=== PATIENT | female | born 1970 | race Caucasian/White ===

== ENCOUNTER → 2023-12-07 14:38 | Outpatient (REF) | payer OTHER, SELFPAY | LOC: HWRAD 14:38 | PROVIDERS: ATTENDING PHYSICIAN Obstetrics & Gynecology Gynecology; FAMILY PHYSICIAN Nurse Practitioner Family | DX: R10.2 Pelvic and perineal pain (principal) | CPT/HCPCS: 76830; 76856 ==

== ENCOUNTER → 2024-01-05 07:47 | Outpatient (REF) | payer OTHER, SELFPAY | LOC: WDC 07:47 | PROVIDERS: ATTENDING PHYSICIAN Obstetrics & Gynecology Gynecology; FAMILY PHYSICIAN Nurse Practitioner Family | DX: N64.4 Mastodynia (principal) | CPT/HCPCS: 76642 ==

== ENCOUNTER → 2024-03-07 13:07 | Outpatient (REF) | payer OTHER, SELFPAY | LOC: RCS 13:07 | PROVIDERS: ATTENDING PHYSICIAN Internal Medicine Cardiovascular Disease; FAMILY PHYSICIAN Nurse Practitioner Family | DX: R07.89 Other chest pain (principal) | CPT/HCPCS: 93225; 93226 ==

== ENCOUNTER 2024-04-04 16:09 | Emergency (ER) | payer OTHER, SELFPAY ==
[2024-04-04 16:09] VITALS: BMI 31.3
[2024-04-04 16:10] VITALS: BP 165/86
[2024-04-04 17:45] VITALS: BP 132/89
[2024-04-04 18:00] VITALS: BP 135/76
--- NOTE | 2024-04-04 18:12 | ED.GENMED ---
History of Present Illness
General
Chief Complaint: Facial Problem
Source: patient
Exam Limitations: none
Time Seen by Provider: 04/04/24 18:12
Nursing documentation reviewed up to this point in time: agreed with
History of Present Illness
History of Present Illness:
53-year-old female with history of facial tingling, HTN GERD, IBS, hypothyroid remote hx Lyme disease, presents with 2 months of right neck and facial tingling, pain getting worse.
53-year-old with burning and numbness and pain. She has been here for different sensations bilateral face in the past. She saw PCP 2 months ago for these symptoms and was told it may be due to being romy menopausal and told to take black cohash.
Saw a different provider for same one month ago and again told probably perimenopausal and continue to black cohash.
Saw Cardiology TOOL PROFILING MACHINE SET UP OPERATOR one month ago as she found her BP to be 180/120 at home, had neg 24 hour Holter monitor and started on Norvasc 3 weeks ago.
[place] [facility] [place] was fatigued all week and had the numbness, tingling, burning pain right side neck and face to episcopalian, thought it may be a side effect from the Norvasc, notified Cardiology TOOL PROFILING MACHINE SET UP OPERATOR and stopped the
Norvasc 2 days ago. Started on Lisinopril 10 mg which she started last night.
States she's had lab work including B vitamins level, TSH, Mg++ all normal, so no need to repeat
Has another appointment with PCP tomorrow.
Past History
Past History
ED Past Medical History: GERD, Hypothyroidism and Other (palpitations. Lyme disease,)
ED Past Surgical History: Cholecystectomy
Social History
Tobacco: Non-smoker
Alcohol: Occasional
Drug: None
Personal:
Living: with family
Employment: Employed
Family History
Family History: Negative Diabetes, Hypertension or CAD
Review of Systems
Review of Systems
Allergies reviewed?: Yes
All Other Systems: ROS reviewed and negative except as documented in HPI and ROS
Constitutional: Denies fever or chills
EENT: Denies sore throat or mouth swelling
Respiratory: Denies trouble breathing
Cardiac: Denies chest pain
ABD/GI: Denies abdominal pain, nausea or vomiting
: Reports no symptoms
Musculoskeletal: Reports no symptoms
Skin: Reports other (Tingling, burning pain, tight feeling right side neck, cheek, ear and episcopalian areas)
Neurological: Denies dizzy, headache, weakness or numbness
Phy Exam
Physical Exam
Physical Exam:
GENERAL: No acute distress. A&Ox3.
CONSTITUTIONAL: Afebrile.
EYES: PERRL, conjunctivae normal
Neck: Supple, no palpable masses. No swelling, no discoloration
ENMT: moist mucus membranes, Pharynx nl, TMs normal, no pain with swallowing
RESPIRATORY: Regular respirations, nonlabored, lungs clear.
CARDIOVASCULAR: Regular rate and rhythm, no murmurs, no rubs. No carotid bruit
GI: Soft, nontender, normal BS
MUSCULOSKELETAL: Moves with ease. Well perfused. Full ROM of neck, no spinal bony tenderness.
SKIN: Warm, dry, pink
PSYCH: Normal mood and affect. Well kept, interactive and appropriate
NEUROLOGIC: Awake, alert and oriented. No focal neurological deficits. Strength equal throughout. Face is symmetrical
Course
Orders/Labs/Results
Orders:
Orders
04/04/24 18:28
CT Neck Angio W/wo Iv Contrast Urgent
Comment:
Reason For Exam: R neck and facial pain and numbness
04/04/24 18:31
CT Head W/o Iv Contrast Urgent
Comment:
Reason For Exam: R facial & neck numbness, pain
Vital Signs
Initial and Last Documented VS:
Initial Vital Signs
Temp Pulse Resp BP Pulse Ox
98.3 F 82 18 165/86 100
04/04/24 16:10 04/04/24 16:10 04/04/24 16:10 04/04/24 16:10 04/04/24 16:10
Last Documented Vital Signs
Temp Pulse Resp BP Pulse Ox
98.3 F 83 21 141/73 96
04/04/24 16:10 04/04/24 20:45 04/04/24 20:45 04/04/24 20:13 04/04/24 20:45
Production Support Supervisor consulted with Physician
Production Support Supervisor consulted with physician?: Yes
Name of Physician Consulted: Natalya
MDM/Problems Addressed
Differential Diagnosis Includes:
paresthesias, blocked carotid vessel, CVA,
MDM/Problems Addressed:
53-year-old female with history of facial tingling, HTN GERD, IBS, hypothyroid remote hx Lyme disease, presents with 2 months of right neck and facial tingling, pain getting worse.
53-year-old with burning and numbness and pain. She has been here for different sensations bilateral face in the past. She saw PCP 2 months ago for these symptoms and was told it may be due to being romy menopausal and told to take black cohash.
Saw a different provider for same one month ago and again told probably perimenopausal and continue to black cohash.
Saw Cardiology TOOL PROFILING MACHINE SET UP OPERATOR one month ago as she found her BP to be 180/120 at home, had neg 24 hour Holter monitor and started on Norvasc 3 weeks ago.
[place] [facility] [place] and was fatigued all week and had the numbness, tingling, burning pain right side neck and face to episcopalian, thought it may be a side effect from the Norvasc, notified Cardiology TOOL PROFILING MACHINE SET UP OPERATOR and stopped the
Norvasc 2 days ago. Started on Lisinopril 10 mg which she started last night.
States she's had lab work including B vitamins level, TSH, Mg++ all normal, so no need to repeat
Has another appointment with PCP tomorrow.
8:45 PM:
CT head normal
CTA neck with and without IV contrast, normal
Pt will f/u with her PCP tomorrow as scheduled
*Critical Care Note
Total Time (30-74mins, 75-104mins- exclusive of procedures): Not Applicable
ED Attending Note
-
Portions of this chart may have been created with voice recognition software.� Occasional wrong word or��sound alike� substitutions may have occurred due to the inherent limitations of voice recognition software.
Discharge Plan
Departure
Patient Disposition: Home (Routine Discharge)
Date of Disposition: 04/04/24
Time of Disposition: 20:46
Patient with high blood pressure during this ER visit?: No
Condition: Good
Discharge Problem:
Facial paresthesia
Instructions: Paresthesia (DC)
Prescriptions:
No Action
Theragen Tablet
1 tab PO DAILY
valacyclovir 500 mg Tablet
500 mg PO BID
pantoprazole 40 mg Tablet,Delayed Release (Dr/Ec)
40 mg PO DAILY
levothyroxine [Synthroid] 200 mcg Tablet
200 mcg PO HS
fluticasone propionate [Flovent HFA] 220 mcg/actuation Hfa Aerosol Inhaler
2 puff INHALATION R BID
Visbiome 112.5 billion cell Capsule
1 cap PO QPM
ibuprofen 600 MG tablet
600 mg PO Q6HPRN PRN (Reason: MILD PAIN)
dicyclomine 10 mg capsule
10 mg PO QID PRN (Reason: abdominal pain) Qty: 7 0RF
nitrofurantoin monohyd/m-cryst [Macrobid] 100 mg capsule
100 mg PO Q12H 5 Days Qty: 10 0RF
Referrals:
Paula Odom CRNP [Family Provider] - Keep scheduled appt
Activity Restrictions/Additional Instructions:
As we discussed, nothing worrisome in your workup here today. Keep your appointment with your PCP tomorrow.
Interventions
Interventions:
*Risk Screen - Suicide Last Done: 04/04/24 20:29
*General Assessment Last Done: 04/04/24 20:29
*Neglect/Abuse Screening Last Done: 04/04/24 20:29
ED- Fall Risk Assessment Last Done: 04/04/24 20:27
*ED COVID-19 Vaccine History Last Done: 04/04/24 21:06
*Nursing Disposition Last Done: 04/04/24 21:06
ED- Neurological Assessment Last Done: 04/04/24 20:27
ED-Skin Assessment Last Done: 04/04/24 20:27
Discharge Date and Time
Discharge Date/Time: 04/04/24 21:06
Print Language: NORWEGIAN
[2024-04-04 20:13] VITALS: BP 141/73
== END 2024-04-04 21:06 | disposition home or self-care (01) ==
LOC: EMR 16:09
PROVIDERS: EMERGENCY PHYSICIAN Emergency Medicine; FAMILY PHYSICIAN Nurse Practitioner Family
DX: R20.2 Paresthesia of skin (principal); K21.9 Gastro-esophageal reflux disease without esophagitis; E03.9 Hypothyroidism, unspecified; I10 Essential (primary) hypertension; K58.9 Irritable bowel syndrome, unspecified; Z90.49 Acquired absence of other specified parts of digestive tract
CPT/HCPCS: 99284; 70450; 70498; Q9967

== ENCOUNTER → 2024-04-20 13:59 | Outpatient (REF) | payer OTHER, SELFPAY | LOC: PAVMRI 13:59 | PROVIDERS: ATTENDING PHYSICIAN Specialist; FAMILY PHYSICIAN Nurse Practitioner Family | DX: R20.0 Anesthesia of skin (principal) | CPT/HCPCS: 70553; A9575 ==

== ENCOUNTER → 2024-05-08 08:14 | Outpatient (REF) | payer OTHER, SELFPAY | LOC: HWRAD 08:14 | PROVIDERS: ATTENDING PHYSICIAN Physician Assistant; FAMILY PHYSICIAN Nurse Practitioner Family | DX: E04.2 Nontoxic multinodular goiter (principal) | CPT/HCPCS: 76536 ==

== ENCOUNTER 2024-07-06 07:41 | Emergency (ER) | payer OTHER, SELFPAY ==
[2024-07-06 07:42] VITALS: BP 162/109
[2024-07-06 08:00] VITALS: BP 157/92
[2024-07-06 08:18] VITALS: BMI 29.8
--- NOTE | 2024-07-06 08:19 | ED.GENMED ---
History of Present Illness
General
Chief Complaint: Weakness
Time Seen by Provider: 07/06/24 08:05
History of Present Illness
History of Present Illness:
53-year-old female history of GERD, IBS, Fabiola on Synthroid presenting with generalized fatigue since March for worsening since 07/10. Patient states that she has been having right sided facial pain since March. Patient states that she had a
right stellate ganglion nerve block on 06/20 which improved right sided facial pain. Patient states that since then, she been having worsening generalized fatigue. Patient denies fever, chills, nausea, vomiting, diarrhea, urinary symptoms, or
abdominal pain. Patient reports left-sided nonradiating nonexertional nonpleuritic chest pain constant since April. Patient states that sometimes she rubs the area or puts ice on it with no relief. Patient states that her Synthroid was last
changed 2 months ago. Patient states that she was supposed to have an EMG today but came here instead secondary to generalized fatigue.
Past History
Past History
ED Past Medical History: GERD, Hypothyroidism and Other (palpitations. Lyme disease,)
ED Past Surgical History: Cholecystectomy
Social History
Tobacco: Non-smoker
Alcohol: Occasional
Drug: None
Personal:
Living: with family
Employment: Employed
Family History
Family History: Negative Diabetes, Hypertension or CAD
Phy Exam
Physical Exam
Physical Exam:
General: Alert, no acute distress
Head: NCAT
Eyes: clear conjunctiva. PERRLA, EOMI
Neck: supple. no overlying erythema, ecchymosis, swelling, tenderness to palpation, induration or fluctuance to right anterior neck where stellate ganglion nerve block performed.
Cardiac: regular rate and rhythm, no murmur
Lungs: clear to auscultation bilaterally. No wheezes, rales, or rhonchi. Speaking full unlabored sentences. No respiratory distress.
Abdomen: soft, nondistended nontender. No rebound or guarding.
MSK: no lower extremity edema bilaterally. No deformity
Skin: warm, dry
Neuro: Alert and oriented x3. CN II-XII grossly intact with no focal deficits. strength 5/5 bilateral upper and lower extremities. sensation intact. no slurred speech
Scores
Heart Score for Chest Pain Patients
STEMI patient?: No
History: Slightly or Non-Suspicious
ECG: Normal
Age: >45 - <65 years
Risk Factors: 1 or 2 Risk Factors
Troponin: </= Normal Limit
Heart Score for Chest Pain Patients: 2
Heart Score Risk: 2.5% MACE over next 6 weeks
Course
Orders/Labs/Results
Orders:
Orders
07/06/24 07:45
Electrocardiogram (*1) Urgent
Reason for Study: Chest Pain
EKG- Treatment ONCE
07/06/24 08:19
CXR2 [CR Chest - 2 Views ] Urgent
Comment:
Reason For Exam: chest pain sob
07/06/24 08:32
CBC/With Diff [Complete Blood Count/With Diff] Urgent
CMP [Comprehensive Metabolic Panel] Urgent
Lipase Urgent
Troponin I Urgent
UA Reflex to Culture [Urinalysis Reflex To Culture] Urgent
Date Specimen was Collected: 07/06/24
Time Specimen was Collected: 08:22
Urine Microscopic Reflex Cult Urgent
Urine Culture Urgent
RACHANA Source: U
Specimen Description:
Date Specimen was Collected: 07/06/24
Time Specimen was Collected: 08:22
Abnormal Lab Results
07/06/24
08:32
WBC 4.6 L 10^3/uL
(4.8-10.8)
MPV 11.2 H fL
(7.4-10.4)
Absolute Lymphs (auto) 1.0 L 10^3/uL
(1.2-3.4)
Monocytes % 10.0 H %
(1.7-9.3)
Glucose 104 H mg/dl
(70-99)
ALT 37 H U/L
(0-35)
Leukocyte Esterase Rfl 1+ A
(Negative)
Urine Bacteria (Reflex) Few A
(Negative)
07/06/24 08:32
07/06/24 08:32
Vital Signs
Initial and Last Documented VS:
Initial Vital Signs
Temp Pulse Resp BP Pulse Ox
97.6 F 110 18 162/109 99
07/06/24 07:42 07/06/24 07:42 07/06/24 07:42 07/06/24 07:42 07/06/24 07:42
Last Documented Vital Signs
Temp Pulse Resp BP Pulse Ox
97.6 F 83 17 158/94 99
07/06/24 07:42 07/06/24 10:00 07/06/24 10:00 07/06/24 10:00 07/06/24 10:00
MDM/Problems Addressed
Differential Diagnosis Includes:
electrolyte abnormality, aydee, nstemi, musculoskeletal pain, viral infection, menopause
MDM/Problems Addressed:
53yoF presenting with generalized fatigue since March 2024, worsening since 06/20 when she had a right stellate ganglion nerve block for right sided facial pain. Pt also reports constant nonpleuritic nonexertional nonradiating left sided chest pain
since April with sometimes shortness of breath. Otherwise no fever, chills, nausea, vomiting, abdominal pain or urinary symptoms. No focal weakness, slurred speech or visual changes. Nontoxic appearing, normal exam. Will check labs, UA, troponin,
CXR, reevaluate. On chart review, pt had CTA neck and CT head on 04/04/24 that was unremarkable. EKG shows NSR at 86bpm with OH 154 QTc 449 no acute ischemic changes.
Labs reviewed. Electrolytes within normal limits. Creatinine within normal limits.. ALT 37 (chronically elevated). Troponin within normal limits. UA negative for UTI. Given normal EKG, normal troponin, chest pain constant for the past few
months, we will forego repeat troponin. Heart score 2. Stable for discharge with cardiology and PCP follow-up
*Critical Care Note
Total Time (30-74mins, 75-104mins- exclusive of procedures): Not Applicable
ED Attending Note
-
Portions of this chart may have been created with voice recognition software.� Occasional wrong word or��sound alike� substitutions may have occurred due to the inherent limitations of voice recognition software.
Discharge Plan
Departure
Patient Disposition: Home (Routine Discharge)
Date of Disposition: 07/06/24
Time of Disposition: 10:03
Patient with high blood pressure during this ER visit?: Yes
Discharge Problem:
Chest pain
Instructions: Generalized Weakness (DC), Chest Pain CBC Follow Up, BLOOD PRESSURE
Prescriptions:
No Action
Theragen Tablet
1 tab PO DAILY
valacyclovir 500 mg Tablet
500 mg PO BID
pantoprazole 40 mg Tablet,Delayed Release (Dr/Ec)
40 mg PO DAILY
levothyroxine [Synthroid] 200 mcg Tablet
200 mcg PO HS
fluticasone propionate [Flovent HFA] 220 mcg/actuation Hfa Aerosol Inhaler
2 puff INHALATION R BID
Visbiome 112.5 billion cell Capsule
1 cap PO QPM
ibuprofen 600 MG tablet
600 mg PO Q6HPRN PRN (Reason: MILD PAIN)
dicyclomine 10 mg capsule
10 mg PO QID PRN (Reason: abdominal pain) Qty: 7 0RF
nitrofurantoin monohyd/m-cryst [Macrobid] 100 mg capsule
100 mg PO Q12H 5 Days Qty: 10 0RF
Referrals:
Paula Odom CRNP [Family Provider] -
Activity Restrictions/Additional Instructions:
Follow-up with cardiology and primary care doctor in 1 to 2 days
Return to emergency department for fever or new/worsening symptoms
Interventions
Interventions:
*Risk Screen - Suicide Last Done: 07/06/24 07:42
*General Assessment Last Done: 07/06/24 07:42
*Neglect/Abuse Screening Last Done: 07/06/24 07:42
ED- Fall Risk Assessment Last Done: 07/06/24 08:19
*ED COVID-19 Vaccine History Last Done: 07/06/24 07:42
*Nursing Disposition Last Done: 07/06/24 10:23
ED- Cardiac Assessment Last Done: 07/06/24 08:19
ED- Neurological Assessment Last Done: 07/06/24 08:19
ED- Pulmonary Assessment Last Done: 07/06/24 08:19
Discharge Date and Time
Discharge Date/Time: 07/06/24 10:24
Print Language: URUGUAYAN
[2024-07-06 08:43] LABS: % Basophils 1.1 % (0-2); % Eosinophils 5.2 % (0-6); % Immature Granulocytes 0.2 % (0-0.5); % Neutrophils 62.5 % (42.2-75.2); Absolute Basophils 0.1 10^3/uL (0-0.2); Absolute Eosinophils 0.2 10^3/uL (0-0.7); Absolute Monocytes 0.5 10^3/uL (0.1-0.6); Absolute Neutrophils 2.9 10^3/uL (1.4-6.5); Hematocrit 42.2 % (37.0-47.0); Hemoglobin 14.5 g/dL (12.0-16.0); Mean Corp Hgb Conc. 34.4 g/dL (33.0-37.0); Mean Corpuscular Hgb 28.1 pg (27.0-31.0); Mean Corpuscular Volume 81.8 fL (81.0-99.0); Mean Platelet Volume 11.2 fL (7.4-10.4); Nucleated Red Blood Cells % 0 %; Platelet Count 208 10^3/uL (130-400); Red Blood Cell Count 5.16 10^6/uL (4.20-5.40); Red Cell Dist. Width 13.5 % (11.5-14.5); White Blood Cell Count 4.6 10^3/uL (4.8-10.8)
[2024-07-06 08:44] LABS: Urine Albumin Negative (Neg - Trace); Urine Bilirubin Negative (Negative); Urine Character Clear (Clear); Urine Color Yellow; Urine Glucose Negative (Negative); Urine Ketone Negative (Negative); Urine Leukocyte 1+ (Negative); Urine Nitrite Negative (Negative); Urine Occult Blood Negative (Negative); Urine Urobilinogen Negative (Neg - 1+); Urine pH 6.5 (5.0-9.0)
[2024-07-06 08:56] LABS: ALT (SGPT) 37 U/L (0-35); AST (SGOT) 35 U/L (14-36); Albumin 4.9 g/dl (3.5-5.0); Alkaline Phosphatase 102 U/L (38-126); Blood Urea Nitrogen 16 mg/dl (7-17); Calcium 9.9 mg/dl (8.4-10.2); Carbon Dioxide 22 mmol/L (22-30); Chloride 104 mmol/L (98-107); Estimated Creatinine Clearance 68 ml/min; Glucose 104 mg/dl (70-99); Lipase 222 U/L (23-300); Sodium 142 mmol/L (135-145); Total Bilirubin 0.8 mg/dl (0.2-1.3); Total Protein 7.7 g/dl (6.3-8.2); eGFR > 60.00
[2024-07-06 08:58] LABS: Urine Squamous Cell >30 /LPF (Few)
[2024-07-06 09:00] LABS: Urine Bacteria Few (Negative); Urine Red Blood Cell None Seen /HPF (0-2)
[2024-07-06 09:07] LABS: Troponin I < 0.012 ng/ml
[2024-07-06 09:39] VITALS: BP 142/86
[2024-07-06 10:00] VITALS: BP 158/94
== END 2024-07-06 10:24 | disposition home or self-care (01) ==
LOC: EMR 07:41
PROVIDERS: EMERGENCY PHYSICIAN Emergency Medicine; FAMILY PHYSICIAN Nurse Practitioner Family
DX: R07.89 Other chest pain (principal); R03.0 Elevated blood-pressure reading, without diagnosis of hypertension; K21.9 Gastro-esophageal reflux disease without esophagitis; K58.9 Irritable bowel syndrome, unspecified
CPT/HCPCS: 99285; 71046; 80053; 81003; 81015; 83690; 84484; 85025; 87086; 93005

== ENCOUNTER → 2024-07-06 14:53 | Outpatient (REF) | payer OTHER, SELFPAY | LOC: RCS 14:53 | PROVIDERS: ATTENDING PHYSICIAN Internal Medicine Cardiovascular Disease; FAMILY PHYSICIAN Nurse Practitioner Family | DX: R07.89 Other chest pain (principal) | CPT/HCPCS: 93017 ==

== ENCOUNTER → 2024-07-26 08:55 | Outpatient (REF) | payer OTHER, SELFPAY | LOC: HWRAD 08:55 | PROVIDERS: ATTENDING PHYSICIAN Student in an Organized Health Care Education/Training Program; FAMILY PHYSICIAN Nurse Practitioner Family | DX: R74.01 Elevation of levels of liver transaminase levels (principal); R79.89 Other specified abnormal findings of blood chemistry | CPT/HCPCS: 76700 ==

== ENCOUNTER → 2024-07-26 20:25 | Outpatient (REF) | payer OTHER, SELFPAY | LOC: MRI 20:25 | PROVIDERS: ATTENDING PHYSICIAN Physician Assistant Medical; FAMILY PHYSICIAN Nurse Practitioner Family | DX: M54.2 Cervicalgia (principal); M47.812 Spondylosis without myelopathy or radiculopathy, cervical region; M54.12 Radiculopathy, cervical region | CPT/HCPCS: 72141 ==

== ENCOUNTER 2024-08-03 09:17 | Emergency (ER) | payer OTHER, SELFPAY ==
[2024-08-03 09:19] VITALS: BP 154/101
--- NOTE | 2024-08-03 09:35 | ED.GENMED ---
History of Present Illness
General
Chief Complaint: Abdominal Pain
Time Seen by Provider: 08/03/24 09:35
History of Present Illness
History of Present Illness:
TIME OF INITIAL ENCOUNTER: 9:40 AM
HPI: The patient presents with a few months of left upper quadrant pain. About a month ago she had outpatient ultrasound that showed hepatosplenomegaly described as mild. The pain has been worsening. She has poor appetite. She vomited once. She
states that her primary care doctor tested her for mono was negative. She has not had a period in about 10 months. She does not feel that her symptoms are related to GERD
EXAM:
GENERAL: Well appearing but in mild distress
HEENT: Moist oral mucosa
CARDIOVASCULAR: No murmurs, normal heart rate, regular rhythm, No chest wall tenderness
PULMONARY: No respiratory distress, breath sounds are clear and equal
ABDOMEN: Soft with no peritoneal signs, mild bilateral lower quadrant tenderness
NEUROLOGIC: Excellent strength all extremities, no coordination deficits
PSYCHIATRIC: Appropriate mental status, normal insight and judgement
EXTREMITIES: Nontender, no edema, moves all extremities equally
SKIN: No rash, no lesions
NUMBER AND COMPLEXITY OF PROBLEMS ADDRESSED AT THE ENCOUNTER
� Chronic conditions affecting care: GERD, IBS, high blood pressure
� Acute Exacerbation and/or Progression of Chronic Illness: This is an acute problem
� Differential Diagnosis includes: Exacerbation of IBS, exacerbation of GERD, exacerbation of EOE, enteritis, splenomegaly, splenic rupture
AMOUNT AND/OR COMPLEXITY OF DATA TO BE REVIEWED AND ANALYZED
� I performed an independent evaluation of and my interpretation is:
EKG:
CT: CT imaging suggests enteritis in the left upper quadrant
X-rays:
Laboratory Studies: White count 6.9, hemoglobin 14.7, chemistries unremarkable including LFTs and lipase, hCG negative, 2+ leukocyte esterase noted
Other:
� Review of other/old records: I reviewed records including the ultrasound from 07/26/2024 that suggested fatty liver and mild splenomegaly which was new in comparison to CT from 03/17/2024
� Clinical information was obtained by an independent historian: None needed
� Prescriptions/Medications Considered but not given:
� Further testing considered but not performed:
RISK OF COMPLICATIONS AND/OR MORBIDITY OR MORTALITY OF PATIENT MANAGEMENT
� Social determinants of health affecting care: Lives at home
� Discussion with other providers: Notified GI front office to try to expedite close outpatient follow-up
� Escalation of care including admission/observation vs risk of discharge considered: Given patient's ongoing symptoms, CT imaging obtained. Labs unremarkable. CT suggest enteritis in the left upper quadrant which is the
location of the patient's pain.
ANY OTHER UPDATES:
12:45 PM: I reassessed patient. She reports some minimal improvement after Toradol. She appears fairly comfortable. She states did try to call their office earlier in the day.
Past History
Past History
ED Past Medical History: GERD, Hypothyroidism and Other (palpitations. Lyme disease,)
ED Past Surgical History: Cholecystectomy
Social History
Tobacco: Non-smoker
Alcohol: Occasional
Drug: None
Personal:
Living: with family
Employment: Employed
Family History
Family History: Negative Diabetes, Hypertension or CAD
Phy Exam
Physical Exam
Physical Exam:
See HPI
Course
Orders/Labs/Results
Orders:
Orders
08/03/24 09:47
0.9% Sodium Chloride 1000 ml [Nss] 1,000 ml IV BOLUS
08/03/24 09:48
Ketorolac [Toradol] 15 mg IV NOW STA
08/03/24 09:49
CT Abd/pelvis W Iv Cont Urgent
Comment:
Reason For Exam: LUQ pain; b/l lower tender; recent HS-megaly
08/03/24 09:50
Test Result ONCE
08/03/24 09:51
Famotidine [Pepcid] 20 mg IV NOW STA
08/03/24 10:24
Complete Blood Count/With Diff Urgent
Comprehensive Metabolic Panel Urgent
HCG, Serum Qualitative Screen Urgent
Lipase Urgent
Urinalysis Reflex To Culture Urgent
Date Specimen was Collected: 08/03/24
Time Specimen was Collected: 10:17
Urine Microscopic Reflex Cult Urgent
Urine Culture Urgent
RACHANA Source: U
Specimen Description:
Date Specimen was Collected: 08/03/24
Time Specimen was Collected: 10:17
Abnormal Lab Results
08/03/24
10:24
MPV 11.2 H fL
(7.4-10.4)
Absolute Lymphs (auto) 1.0 L 10^3/uL
(1.2-3.4)
Lymphocytes % 14.8 L %
(20.5-51.1)
ALT 37 H U/L
(0-35)
Urine Ketones Trace A
(Negative)
Leukocyte Esterase Rfl 2+ A
(Negative)
Urine WBC (Reflex) 11-15 A /HPF
(0-5)
Urine Bacteria (Reflex) Many A
(Negative)
08/03/24 10:24
08/03/24 10:24
Vital Signs
Initial and Last Documented VS:
Initial Vital Signs
Temp Pulse Resp BP Pulse Ox
36.6 C 110 18 154/101 96
08/03/24 09:19 08/03/24 09:19 08/03/24 09:19 08/03/24 09:19 08/03/24 09:19
Last Documented Vital Signs
Temp Pulse Resp BP Pulse Ox
36.6 C 110 18 154/101 96
08/03/24 09:19 08/03/24 09:19 08/03/24 09:19 08/03/24 09:19 08/03/24 09:19
*Critical Care Note
Total Time (30-74mins, 75-104mins- exclusive of procedures): Not Applicable
ED Attending Note
-
Portions of this chart may have been created with voice recognition software.� Occasional wrong word or��sound alike� substitutions may have occurred due to the inherent limitations of voice recognition software.
Discharge Plan
Departure
Patient Disposition: Home (Routine Discharge)
Date of Disposition: 08/03/24
Time of Disposition: 12:44
Patient with high blood pressure during this ER visit?: Yes
Discharge Problem:
Abdominal pain
Instructions: Abdominal Pain
Prescriptions:
No Action
Theragen Tablet
1 tab PO DAILY
pantoprazole 40 mg Tablet,Delayed Release (Dr/Ec)
40 mg PO NOON
levothyroxine [Synthroid] 200 mcg Tablet
200 mcg PO MOTUWETHFRSA
Visbiome 112.5 billion cell Capsule
1 cap PO QPM
levothyroxine [Synthroid] 200 mcg tablet
100 mcg PO MORALEZ
lisinopril 5 mg tablet
5 mg PO HS
cyclobenzaprine 5 mg tablet
5 mg PO HSPRN PRN (Reason: muscle spasm/pain )
cranberry extract [Ellura] 200 mg Capsule
200 mg PO DAILY
Referrals:
Paula Odom CRNP [Family Provider] -
Julio C Wesley MD [Active] - Follow up in 2-3 days
Activity Restrictions/Additional Instructions:
A CAT scan was obtained today. The blood vessels are normal. The liver appeared normal. The gallbladder had been removed. There is no sign of infection in the area of where the gallbladder was. The bile ducts are normal. Your spleen was
normal. The pancreas appeared normal. There is no sign of any kidney stones. There is 'mild mucosal hyperenhancement prominence in multiple loops of small bowel within the left upper quadrant with associated mesenteric inflammatory change and
mesenteric lymph nodes', no sign of diverticulitis, there is no sign of appendicitis. I am sending a message to the GI front office to try to expedite follow-up. Return here if worse or other concerns. We did give a dose of Toradol and Pepcid
here.
Interventions
Interventions:
*Risk Screen - Suicide Last Done: 08/03/24 10:15
*General Assessment Last Done: 08/03/24 10:15
*Neglect/Abuse Screening Last Done: 08/03/24 10:15
ED- Fall Risk Assessment Last Done: 08/03/24 10:15
*ED COVID-19 Vaccine History Last Done: 08/03/24 10:15
XS-Nzyowz-Hwiaedmybh Assessment Last Done: 08/03/24 10:15
Discharge Date and Time
Print Language: NIUEAN
[2024-08-03] MEDS: NSS 1000 IV (10:26)
[2024-08-03] MEDS: TORADOL 15 MG IV (10:26)
[2024-08-03] MEDS: PEPCID 20 MG IV (10:27)
[2024-08-03 10:33] VITALS: BMI 30.1
[2024-08-03 10:45] LABS: % Basophils 0.9 % (0-2); % Eosinophils 2.8 % (0-6); % Immature Granulocytes 0.3 % (0-0.5); % Lymphocytes 14.8 % (20.5-51.1); % Monocytes 7.3 % (1.7-9.3); % Neutrophils 73.9 % (42.2-75.2); Absolute Basophils 0.1 10^3/uL (0-0.2); Absolute Eosinophils 0.2 10^3/uL (0-0.7); Absolute Monocytes 0.5 10^3/uL (0.1-0.6); Absolute Neutrophils 5.1 10^3/uL (1.4-6.5); Hematocrit 44.1 % (37.0-47.0); Hemoglobin 14.7 g/dL (12.0-16.0); Mean Corp Hgb Conc. 33.3 g/dL (33.0-37.0); Mean Corpuscular Hgb 27.6 pg (27.0-31.0); Mean Corpuscular Volume 82.9 fL (81.0-99.0); Mean Platelet Volume 11.2 fL (7.4-10.4); Nucleated Red Blood Cells % 0 %; Platelet Count 216 10^3/uL (130-400); Red Blood Cell Count 5.32 10^6/uL (4.20-5.40); Red Cell Dist. Width 13.2 % (11.5-14.5); White Blood Cell Count 6.9 10^3/uL (4.8-10.8)
[2024-08-03 10:48] LABS: Urine Albumin Negative (Neg - Trace); Urine Bilirubin Negative (Negative); Urine Character Clear (Clear); Urine Color Yellow; Urine Glucose Negative (Negative); Urine Ketone Trace (Negative); Urine Leukocyte 2+ (Negative); Urine Nitrite Negative (Negative); Urine Occult Blood Negative (Negative); Urine Specific Gravity 1.015 (<1.030); Urine Urobilinogen Negative (Neg - 1+)
[2024-08-03 11:04] LABS: HCG, Serum Qualitative Screen Negative
[2024-08-03 11:11] LABS: ALT (SGPT) 37 U/L (0-35); AST (SGOT) 34 U/L (14-36); Alkaline Phosphatase 118 U/L (38-126); Blood Urea Nitrogen 12 mg/dl (7-17); Calcium 9.7 mg/dl (8.4-10.2); Carbon Dioxide 24 mmol/L (22-30); Chloride 103 mmol/L (98-107); Estimated Creatinine Clearance 68 ml/min; Glucose 92 mg/dl (70-99); Lipase 222 U/L (23-300); Potassium 4.3 mmol/L (3.5-5.1); Sodium 142 mmol/L (135-145); Total Bilirubin 0.6 mg/dl (0.2-1.3); Total Protein 7.8 g/dl (6.3-8.2); eGFR > 60.00
[2024-08-03 12:34] LABS: Urine Mucus Few; Urine Squamous Cell >30 /LPF (Few)
[2024-08-03 12:35] LABS: Urine Amorphous Seen; Urine Urothelial Cell 16-20 /LPF (FEW)
[2024-08-03 12:36] LABS: Urine Bacteria Many (Negative); Urine Red Blood Cell 0-2 /HPF (0-2)
[2024-08-03 12:59] VITALS: BP 147/82
== END 2024-08-03 13:02 | disposition home or self-care (01) ==
LOC: EMR 09:17
PROVIDERS: EMERGENCY PHYSICIAN Emergency Medicine; FAMILY PHYSICIAN Nurse Practitioner Family
DX: R10.12 Left upper quadrant pain (principal); R11.10 Vomiting, unspecified; E03.9 Hypothyroidism, unspecified; K21.9 Gastro-esophageal reflux disease without esophagitis; Z90.49 Acquired absence of other specified parts of digestive tract
CPT/HCPCS: 96374; 96375; 96361; 99284; 74177; 80053; 81003; 81015; 83690; 84703; 85025; 87086; Q9967

== ENCOUNTER 2024-08-07 10:21 | Inpatient (IN) | payer OTHER, SELFPAY ==
[2024-08-07] VITALS (12 sets, daily range): BP systolic 135–152; BP diastolic 77–98; BMI 30.3
--- NOTE | 2024-08-07 06:03 | ED.GENMED ---
History of Present Illness
General
Chief Complaint: Abdominal Pain
Time Seen by Provider: 08/07/24 06:00
History of Present Illness
History of Present Illness:
TIME OF INITIAL ENCOUNTER: 6 AM
HPI: Patient presents with worsening left upper quadrant pain. She was pacing all weekend. She can barely sleep. She has had poor p.o. intake. He says that she spoke to Dr. Wesley recently who wanted her to get an MRI. She has not had any
vomiting and has not had any diarrhea. She has had no fevers. She reports pain radiating towards her back.
EXAM:
GENERAL: Well appearing, but does appear to be in mild distress related the pain in the left upper quadrant�she appears more uncomfortable than she did the other day
HEENT: Moist oral mucosa
CARDIOVASCULAR: No murmurs, normal heart rate, regular rhythm, No chest wall tenderness
PULMONARY: No respiratory distress, breath sounds are clear and equal
ABDOMEN: Soft with no peritoneal signs, mild left upper quadrant tenderness
NEUROLOGIC: Excellent strength all extremities, no coordination deficits
PSYCHIATRIC: Appropriate mental status, normal insight and judgement
EXTREMITIES: Nontender, no edema, moves all extremities equally
SKIN: No rash, no lesions
NUMBER AND COMPLEXITY OF PROBLEMS ADDRESSED AT THE ENCOUNTER
� Chronic conditions affecting care: High blood pressure, IBS, GERD, thyroid disease, status post cholecystectomy, EOE
� Acute Exacerbation and/or Progression of Chronic Illness: This is an acute problem
� Differential Diagnosis includes: Exacerbation of GERD, exacerbation of IBS, exacerbation of EOE, enteritis
AMOUNT AND/OR COMPLEXITY OF DATA TO BE REVIEWED AND ANALYZED
� I performed an independent evaluation of and my interpretation is:
EKG:
CT:
X-rays:
Laboratory Studies: White count 4.6, hemoglobin normal, chemistries unremarkable, CRP 6.2
Other:
� Review of other/old records: I saw this patient 4 days ago for similar symptoms in the left upper quadrant and at that time been having worsening left upper quadrant pain. CT from 08/03/2024 showed mild bowel wall thickening,
hyperenhancement, mesenteric edema, and mesenteric lymph node enlargement adjacent to several loops of small bowel in the left upper abdomen suggestive of enteritis. The patient has exercise stress test 3 days ago which was unremarkable.
� Clinical information was obtained by an independent historian: None needed
� Prescriptions/Medications Considered but not given: Consider steroids however Dr. Reddy recommend against it as there is no history of IBD
� Further testing considered but not performed:
RISK OF COMPLICATIONS AND/OR MORBIDITY OR MORTALITY OF PATIENT MANAGEMENT
� Social determinants of health affecting care: Lives at home
� Discussion with other providers: At 6:55 AM, I discussed case with Dr. Reddy -recommended to consider either admitting for IV fluids/pain control or outpatient management with antibiotics and follow-up Dr. Wesley
� Escalation of care including admission/observation vs risk of discharge considered: See below
ANY OTHER UPDATES:
7:25 AM: Patient not significantly improved. Dr. Reddy recommends keeping patient for IV fluids/pain control. The patient indicates that Dr. Wesley suggested trying steroids however Dr. Reddy recommends against steroids as there is no history of IBD.
She recommends trying antibiotics. Notify Dr. Nuno for admission 7:32 AM.
Past History
Past History
ED Past Medical History: GERD, Hypothyroidism and Other (palpitations. Lyme disease,)
ED Past Surgical History: Cholecystectomy
Social History
Tobacco: Non-smoker
Alcohol: Occasional
Drug: None
Personal:
Living: with family
Employment: Employed
Family History
Family History: Negative Diabetes, Hypertension or CAD
Phy Exam
Physical Exam
Physical Exam:
See HPI
Course
Orders/Labs/Results
Orders:
Orders
08/07/24 06:14
0.9% Sodium Chloride 1000 ml [Nss] 1,000 ml IV BOLUS
Ketorolac [Toradol] 15 mg IV NOW STA
08/07/24 06:16
CRP [C-Reactive Protein] Urgent
Complete Blood Count/With Diff Urgent
Comprehensive Metabolic Panel Urgent
Lipase Urgent
08/07/24 06:23
Urinalysis Reflex To Culture Urgent
Date Specimen was Collected: 08/07/24
Time Specimen was Collected: 06:20
Urine Microscopic Reflex Cult Urgent
Urine Culture Urgent
RACHANA Source: U
Specimen Description:
Date Specimen was Collected: 08/07/24
Time Specimen was Collected: 06:20
08/07/24 07:30
MetroNIDAZOLE 500 MG/100 ML [Flagyl 500 mg] 100 ml IV NOW
08/07/24 08:05
Ciprofloxacin 400 mg/[id number] [Cipro 400 mg] 200 ml IV NOW
Abnormal Lab Results
08/07/24 08/07/24
06:16 06:23
WBC 4.6 L 10^3/uL
(4.8-10.8)
MPV 11.0 H fL
(7.4-10.4)
Monocytes % 9.5 H %
(1.7-9.3)
Eosinophils % 6.7 H %
(0-6)
Chloride 108 H mmol/L
(98-107)
Glucose 105 H mg/dl
(70-99)
Leukocyte Esterase Rfl 1+ A
(Negative)
Urine WBC (Reflex) 26-30 A /HPF
(0-5)
Urine Bacteria (Reflex) Few A
(Negative)
08/07/24 06:16
08/07/24 06:16
Vital Signs
Initial and Last Documented VS:
Initial Vital Signs
Pulse Resp BP Pulse Ox
76 22 145/85 98
08/07/24 05:31 08/07/24 05:31 08/07/24 05:31 08/07/24 05:31
Last Documented Vital Signs
Temp Pulse Resp BP Pulse Ox
36.7 C 86 25 146/80 95
08/07/24 06:00 08/07/24 09:15 08/07/24 09:15 08/07/24 09:00 08/07/24 09:00
*Critical Care Note
Total Time (30-74mins, 75-104mins- exclusive of procedures): Not Applicable
ED Attending Note
-
Portions of this chart may have been created with voice recognition software.� Occasional wrong word or��sound alike� substitutions may have occurred due to the inherent limitations of voice recognition software.
Discharge Plan
Departure
Patient Disposition: Admit
Date of Disposition: 08/07/24
Time of Disposition: 07:33
Presentation/result/management discussed w/ accepting MD/DO: Hospitalist
Discharge Problem:
Enteritis
Prescriptions:
No Action
Theragen Tablet
1 tab PO DAILY
pantoprazole 40 mg Tablet,Delayed Release (Dr/Ec)
40 mg PO NOON
levothyroxine [Synthroid] 200 mcg Tablet
200 mcg PO MOTUWETHFRSA
Visbiome 112.5 billion cell Capsule
1 cap PO QPM
levothyroxine [Synthroid] 200 mcg tablet
100 mcg PO MORALEZ
lisinopril 5 mg tablet
5 mg PO HS
cranberry extract [Ellura] 200 mg Capsule
200 mg PO DAILY
Referrals:
Paula Odom CRNP [Family Provider] -
Interventions
Interventions:
*Risk Screen - Suicide Last Done: 08/07/24 05:31
*General Assessment Last Done: 08/07/24 06:06
*Neglect/Abuse Screening Last Done: 08/07/24 05:31
ED- Fall Risk Assessment Last Done: 08/07/24 06:41
*ED COVID-19 Vaccine History Last Done: 08/07/24 06:06
SE-Ckigcf-Esujseuwre Assessment Last Done: 08/07/24 06:41
Discharge Date and Time
Print Language: CZECH
[2024-08-07] MEDS: NSS 1000 IV (06:18)
[2024-08-07] MEDS: TORADOL 15 MG IV ×2 (06:19→14:12)
[2024-08-07 06:30] LABS: % Basophils 0.9 % (0-2); % Eosinophils 6.7 % (0-6); % Immature Granulocytes 0.4 % (0-0.5); % Lymphocytes 30.4 % (20.5-51.1); % Monocytes 9.5 % (1.7-9.3); % Neutrophils 52.1 % (42.2-75.2); Absolute Eosinophils 0.3 10^3/uL (0-0.7); Absolute Lymphocytes 1.4 10^3/uL (1.2-3.4); Absolute Monocytes 0.4 10^3/uL (0.1-0.6); Absolute Neutrophils 2.4 10^3/uL (1.4-6.5); Hemoglobin 13.7 g/dL (12.0-16.0); Mean Corp Hgb Conc. 33.4 g/dL (33.0-37.0); Mean Corpuscular Hgb 27.5 pg (27.0-31.0); Mean Corpuscular Volume 82.2 fL (81.0-99.0); Nucleated Red Blood Cells % 0 %; Platelet Count 235 10^3/uL (130-400); Red Blood Cell Count 4.99 10^6/uL (4.20-5.40); Red Cell Dist. Width 13.2 % (11.5-14.5); White Blood Cell Count 4.6 10^3/uL (4.8-10.8)
[2024-08-07 06:43] LABS: ALT (SGPT) 27 U/L (0-35); AST (SGOT) 24 U/L (14-36); Albumin 4.3 g/dl (3.5-5.0); Alkaline Phosphatase 94 U/L (38-126); Blood Urea Nitrogen 12 mg/dl (7-17); Carbon Dioxide 24 mmol/L (22-30); Chloride 108 mmol/L (98-107); Estimated Creatinine Clearance 76 ml/min; Glucose 105 mg/dl (70-99); Lipase 223 U/L (23-300); Potassium 3.9 mmol/L (3.5-5.1); Sodium 142 mmol/L (135-145); Total Bilirubin 0.4 mg/dl (0.2-1.3); Total Protein 6.8 g/dl (6.3-8.2); eGFR > 60.00
[2024-08-07 07:27] LABS: Urine Albumin Negative (Neg - Trace); Urine Bilirubin Negative (Negative); Urine Character Clear (Clear); Urine Color Yellow; Urine Glucose Negative (Negative); Urine Ketone Negative (Negative); Urine Leukocyte 1+ (Negative); Urine Nitrite Negative (Negative); Urine Occult Blood Negative (Negative); Urine Urobilinogen Negative (Neg - 1+)
[2024-08-07] MEDS: FLAGYL 500 MG 100 IV ×3 (07:37→22:16)
[2024-08-07 08:02] LABS: Urine Squamous Cell >30 /LPF (Few)
[2024-08-07 08:03] LABS: Urine Bacteria Few (Negative); Urine Red Blood Cell 0-2 /HPF (0-2); Urine White Cell 26-30 /HPF (0-5)
[2024-08-07] MEDS: CIPRO 400 MG 200 IV ×2 (08:19→21:07)
--- NOTE | 2024-08-07 09:55 | HPS.HSE ---
Family Physician
-
Family Physician: CECELIA Aponte
Chief Complaint
-
Abdominal pain
History of Present Illness
Patient's presents with ongoing recurrent relentless abdominal pain. It started few weeks ago and she felt as though it was like no pain. Upper quadrant of the abdomen and sometimes going to the back.
For the last 2 weeks it has been more persistent. Present all the time like a dull pain but intermittently was getting worse. Has associated nausea but no vomiting. No diarrhea. She lost appetite and she lost 5 pounds in the last 2 weeks. No
prior history of similar abdominal pain.
She has a history of irritable bowel syndrome and GERD and had endoscopy in the past and on PPI. Her reflux symptoms are under control.
She also had a routine colonoscopy a year ago.
Son has ulcerative colitis and mom has some form of colitis.
No fever chills.
No recent travel. No major changes with her diet.
She had a Lyme's disease in 2019. She also had COVID.
She has unexplained right facial pain for which she had a stellate ganglion injection 2 weeks ago.
Medical History
Past Medical History
Past Medical History: Reports GERD, HTN and Hypothyroidism
Past Surgical History: Reports Cholecystectomy
Social History
Tobacco: Non-smoker
Alcohol: None
Drug: None
Personal:
Living: With Family
Family History
Family History: Other (Son has ulcerative colitis.)
Allergies / Home Medications
Allergies reflects when Allergies were last updated in [email or web address].
Home Medications with original date entered in [email or web address]
Allergy/Medication List:
Allergies
Allergy/AdvReac Type Severity Reaction Status Date / Time
amoxicillin [Amoxicillin] Allergy Rash Verified 08/07/24 05:34
cefaclor [From Ceclor] Allergy Rash Verified 08/07/24 05:34
erythromycin base Allergy Rash Verified 08/07/24 05:34
[Erythromycin Base]
sulfamethoxazole Allergy Rash Verified 08/07/24 05:34
[From Bactrim]
trimethoprim [From Bactrim] Allergy Rash Verified 08/07/24 05:34
Home Medications
Lactobac no.2-Bifidobac no.1-S. thermo 112.5 billion cell capsule (Visbiome) 1 cap PO QPM probiotic 07/06/23
levothyroxine 200 mcg tablet (Synthroid) 200 mcg PO MOTUWETHFRSA Thyroid 07/06/23
pantoprazole 40 mg tablet,delayed release 40 mg PO NOON Gastrointestinal Issue 07/06/23
therapeutic multivitamin 1 tab PO DAILY Supplement 07/06/23
cranberry extract 200 mg capsule (Ellura) 200 mg PO DAILY UTI prophylaxis 08/03/24
levothyroxine 200 mcg tablet (Synthroid) 100 mcg PO MORALEZ Thyroid 08/03/24
lisinopril 5 mg tablet 5 mg PO HS Blood Pressure 08/03/24
Review of Systems
-
A 12 point ROS was completed and negative except as noted: Yes
Physical Exam
Vital Signs
Vital Signs
Temp Pulse Resp BP Pulse Ox
98.0 F 86 25 146/80 95
08/07/24 06:00 08/07/24 09:15 08/07/24 09:15 08/07/24 09:00 08/07/24 09:00
Physical Exam
General: No Apparent Distress
HEENT: Atraumatic
Respiratory: Non Labored Respirations
Cardiac: S1/S2 and Regular Rhythm
GI: Soft, Non Tender, Non Distended and Normal Bowel Sounds
Neuro: AO x 3
Psych: Calm; No Confused
Laboratory Results
-
08/07/24 06:16
08/07/24 06:16
Laboratory Results
Total Bilirubin 0.4 mg/dl (0.2-1.3) 08/07/24 06:16
AST 24 U/L (14-36) 08/07/24 06:16
ALT 27 U/L (0-35) 08/07/24 06:16
Alkaline Phosphatase 94 U/L (38-126) 08/07/24 06:16
Lipase 223 U/L (23-300) 08/07/24 06:16
Data Reviewed
-
CT Scan: Report Reviewed by me (CT of the abdomen pelvis)
Lab Data: Labs Reviewed by me
Impression/Plan
-
Acute enteritis-infectious versus inflammatory.
She has ongoing abdominal pain with the decreased oral intake and loss of weight. No diarrhea.
CT of the abdomen pelvis shows-Mild bowel wall thickening, hyperenhancement, mesenteric edema, and mesenteric lymph node enlargement adjacent to several loops of small bowel within the left mid to upper abdomen, consistent with mild enteritis.
Admit to hospital for further evaluation.
Start on empirical antibiotics.
Start Toradol. Patient would want to avoid narcotic pain medicines.
Consult GI.
Check inflammatory markers and stools for WBC. Consider stool calprotectin.
Further diagnostic evaluation per GI.
Start on clear liquids.
Hypertension-continue with lisinopril
Hypothyroidism-continue with Synthroid
GERD-continue PPI
Full code
--- NOTE | 2024-08-07 13:40 | PTCARENOTE ---
Received pt from Ed via wheelchair. AAOx3. Pt ambulated to bed with assist x1/ standby. Pt c/o aching pain throughout left abd quadrant that radiates to back. VSS. Pt verbalized understanding of call wilson. Call wilson within close reach. Will cont to
monitor.
[2024-08-07] MEDS: PROTONIX 40 MG PO (14:04)
[2024-08-07] MEDS: SYNTHROID 200 MCG PO (14:07)
--- NOTE | 2024-08-07 14:59 | CON.GI ---
Addendum entered and electronically signed by Jody Oconnor Do, MD 08/08/24 15:20:
I saw and examined the patient.
The FILTER CLOTH MAKER's note was reviewed and I agree with the note. Patient was seen and examined on 08/07 due to computer issue this is delayed entry
Comment: Nancy is a 53yo W with h/o EoE on PPI managed by Dr Wesley, GERD and IBS who presents with worsening L under breast abd pain. About 2 months ago she had trigeminal nerve pain in R face and this LUQ pain started. She had facial injection
and face pain resolved however this persists. It is not associated with eating/bowel patterns. Vitals Stable. Exam LUQ mildly TTP, obese, no guarding or rebound. Labs reviewed
Impression
- Acute on chronic LUQ
Given radiation to back and associated face pain suspect musculoskeletal or nerve related
Other consideration is small bowel crohn's given abnormal CT. Another ddx is IBS hypersensitivity
- Recent CT scan with findings of enteritis
Denies any diarrhea
- EoE on PPI
- GERD
- IBS
- Son with UC
- HTN
- Recent facial pain
Recommendations
- Agree with MRE to eval for small bowel disease
- Cw PPI
- C/w diet
- Stool studies
Will follow with you.
Will follow with you
Original Note:
Consultation
-
Date/Time Consultation Requested: 08/07/24 1330
Date/Time Consultation Performed: 08/07/24 1500
Requesting Provider: Scott Em MD
Performing Provider: CECELIA Mims, Jody Reddy MD
Reason for Consultation: abdominal pain
Medical History
Chief Complaint / HPI
Chief Complaint: abdominal pain
History of Present Illness:
Pt is a 53yo with hx Eosinophilic esophagitis, hypothyroidism, Meredith, GERD, HTN, IBS, prior javon with recent facial pain with ganglion injection and now noted abdominal pain.
In further review with patient symptoms started several months but worse last 2 weeks prompting PCP and and initial ER visit. She completed US abdomen 07/26 with fatty liver, new mild splenomegaly. She also completed CT 08/03 with mild Bowel
wall thickening, hyperenhancement, mesenteric edema/lymph node enlargement c/w mild enteritis, appendicolith at base of appendix and prior javon with no duct dilation. She spoke with Dr. Wesley after CT on 08/04 and plan for MRE but symptoms
worsened returns to ER. She was noted in June with ALT 42(normal to 32) and lipase 89(normal to 72) other LFT's normal. Labs stable on admission with stable CBC, chemistry and LFT's. CRP 6.2.
Pt states pain in LUQ under ribs. Pain is cholically in nature up to 8/10 and worse at night and radiates to back and shoulder. Slight improvement with pain meds. Minimal change with eating or movement.
She also admits to nausea without vomiting but denies dysphagia, GERD, diarrhea, constipation or rectal bleeding. She did see some hoa colored stools. No recent travel, abx, sick contact. She had recent cold symptoms. Only new med was
probiotics. Some recent advil use after pain started.
Past Medical History
Past Medical History: GERD, HTN, Hypothyroidism (thyroid nodule) and Other (IBS, lyme disease, prior orbital shingles, covid, meredith, chronic bronchitis, eosinophilic esophagitis )
Past Surgical History: Cholecystectomy, Gynecological (cryo of cervix) and Other (tooth extraction)
Social History
Tobacco: Non-Smoker
Alcohol: Occasional
Drug: None
Personal:
Living: With Family
Family History
Family History: Other (son with ulcerative colitis, mothe with IBS and colitis )
Allergies / Home Medications
Allergy/AdvReac Type Severity Reaction Status Date / Time
amoxicillin [Amoxicillin] Allergy Rash Verified 08/07/24 05:34
cefaclor [From Ceclor] Allergy Rash Verified 08/07/24 05:34
erythromycin base Allergy Rash Verified 08/07/24 05:34
[Erythromycin Base]
sulfamethoxazole Allergy Rash Verified 08/07/24 05:34
[From Bactrim]
trimethoprim [From Bactrim] Allergy Rash Verified 08/07/24 05:34
�Medication �Instructions �Recorded
Lactobac no.2-Bifidobac no.1-S. 1 cap PO QPM probiotic 07/06/23
thermo 112.5 billion cell capsule
(Visbiome)
levothyroxine 200 mcg tablet 200 mcg PO MOTUWETHFRSA Thyroid 07/06/23
(Synthroid)
pantoprazole 40 mg tablet,delayed 40 mg PO NOON Gastrointestinal 07/06/23
release Issue
therapeutic multivitamin 1 tab PO DAILY Supplement 07/06/23
cranberry extract 200 mg capsule 200 mg PO DAILY UTI prophylaxis 08/03/24
(Ellura)
levothyroxine 200 mcg tablet 100 mcg PO MORALEZ Thyroid 08/03/24
(Synthroid)
lisinopril 5 mg tablet 5 mg PO HS Blood Pressure 08/03/24
Review of Systems
-
History Source: Patient
Constitutional: Reports Weight Loss (few lbs )
EENT: Reports No Symptoms
Respiratory: Reports No Symptoms
Cardiac: Reports No Symptoms
Abdomen/GI: Reports Abdominal Pain and Nausea
: Reports No Symptoms
Musculoskeletal: Reports No Symptoms
Skin: Reports No Symptoms
Neurological: Reports No Symptoms
Endocrine: Reports No Symptoms
Hematologic/Lymphatic: Reports No Symptoms
Vital Signs
Temp Pulse Resp BP Pulse Ox
98.1 F 78 18 152/88 97
08/07/24 13:39 08/07/24 13:39 08/07/24 13:39 08/07/24 13:39 08/07/24 13:39
Physical Exam
Exam
General: Well Developed, Well Nourished and No Apparent Distress
HEENT: Normocephalic and Anicteric
Respiratory: Clear
Cardiac: Regular Rhythm
GI: Soft, Non Tender and Non Distended
Musculoskeletal: No Clubbing and No Cyanosis
Skin: Warm and Dry
Neuro: Awake, Alert and AO x 3
Psych: Calm
Results
WBC 4.6 10^3/uL (4.8-10.8) L 08/07/24 06:16
Hgb 13.7 g/dL (12.0-16.0) 08/07/24 06:16
Hct 41.0 % (37.0-47.0) 08/07/24 06:16
MCV 82.2 fL (81.0-99.0) 08/07/24 06:16
Plt Count 235 10^3/uL (130-400) 08/07/24 06:16
Absolute Neuts (auto) 2.4 10^3/uL (1.4-6.5) 08/07/24 06:16
Sodium 142 mmol/L (135-145) 08/07/24 06:16
Potassium 3.9 mmol/L (3.5-5.1) 08/07/24 06:16
Chloride 108 mmol/L (98-107) H 08/07/24 06:16
Carbon Dioxide 24 mmol/L (22-30) 08/07/24 06:16
BUN 12 mg/dl (7-17) 08/07/24 06:16
Creatinine 0.9 mg/dL (0.6-1.0) 08/07/24 06:16
Calcium 9.0 mg/dl (8.4-10.2) 08/07/24 06:16
Total Bilirubin 0.4 mg/dl (0.2-1.3) 08/07/24 06:16
AST 24 U/L (14-36) 08/07/24 06:16
ALT 27 U/L (0-35) 08/07/24 06:16
Alkaline Phosphatase 94 U/L (38-126) 08/07/24 06:16
Lipase 223 U/L (23-300) 08/07/24 06:16
Diagnostic Image Results:
07/26/24 US Abdomen Complete/Upper
IMPRESSION:
1. Mildly increased hepatic echogenicity suggesting mild fatty infiltration. No abnormal focal hepatic lesions identified.
2. Mild splenomegaly, new as compared with previous CT. Indeterminate etiology.
08/03/24 CT Abd/pelvis W Iv Cont
1. Mild bowel wall thickening, hyperenhancement, mesenteric edema, and mesenteric lymph node enlargement adjacent to several loops of small bowel within the left mid to upper abdomen, consistent with mild enteritis. Enteritis is likely infectious or
inflammatory.
2. Appendicolith at the base of the appendix, without evidence of appendicitis.
3. Status post cholecystectomy. No abnormal biliary ductal dilation appreciated.
Prior GI Procedures:
07/2023 [facility] EGD- - Esophageal mucosal changes secondary to eosinophilic
esophagitis.
- Multiple gastric polyps. Biopsied.
- Normal examined duodenum.
- Biopsies were taken with a cold forceps for
evaluation of eosinophilic esophagitis.
bx neg metaplasia, rare intraepithelial eosinophilia up to 10 in one HPF (2017 >20 eosinophils)
12/2020 [facility] colon - The entire examined colon is normal.
- No specimens collected.
Assessment / Plan
-
Pt is a 53yo with hx Eosinophilic esophagitis, hypothyroidism, Meredith, GERD, HTN, IBS, prior javon with recent facial pain with ganglion injection and now noted abdominal pain.
In further review with patient symptoms started several months but worse last 2 weeks with noted US abdomen 07/26 with fatty liver, new mild splenomegaly. She also completed CT 08/03 with mild Bowel wall thickening, hyperenhancement, mesenteric
edema/lymph node enlargement c/w mild enteritis, appendicolith at base of appendix and prior javon with no duct dilation. Plan was for MRE but symptoms worsened returns to ER. She was noted in June with ALT 42(normal to 32) and lipase
89(normal to 72) other LFT's normal. Labs stable on admission with stable CBC, chemistry and LFT's. CRP 6.2.
-LUQ pain
-CT 08/03 with mild enteritis with mesenteric edema/lymph node enlargement
-mild OP AST and lipase elevation on June
-US with fatty liver/new splenomegaly
-recent mild ALT and lipase elevation in June
other med problems:
-GERD
-IBS
-EOE on chronic PPI
-hypothyroidism
-Meredith
-IBS
-prior javon
-facial pain with ganglion injection
PLAN:
etiology of LUQ pain related to enteritis vs other
will proceed with MRE next as was planned OP testing but due to pain now admitted
trend LFT's as recent elevation-- may be fatty liver related vs other
ok for clear diet then NPO in AM for MRE
family updated
-
-
Thank you for consultation and allowing me to participate in the patient's care. Please call the venereal disease control head GI physician during the after hours with any questions or concerns.
[2024-08-07] MEDS: VISBIOME 1 CAP PO (16:54)
[2024-08-07] MEDS: ZESTRIL 5 MG PO (21:06)
[2024-08-08] MEDS: TYLENOL 650 MG PO ×2 (02:45→23:10)
[2024-08-08] MEDS: FLAGYL 500 MG 100 IV ×3 (05:59→23:03)
[2024-08-08 06:00] VITALS: BMI 29.3
[2024-08-08 07:18] LABS: Hematocrit 40.5 % (37.0-47.0); Hemoglobin 13.6 g/dL (12.0-16.0); Mean Corp Hgb Conc. 33.6 g/dL (33.0-37.0); Mean Corpuscular Hgb 27.9 pg (27.0-31.0); Mean Platelet Volume 11.1 fL (7.4-10.4); Platelet Count 236 10^3/uL (130-400); Red Blood Cell Count 4.88 10^6/uL (4.20-5.40); Red Cell Dist. Width 13.1 % (11.5-14.5); White Blood Cell Count 4.4 10^3/uL (4.8-10.8)
[2024-08-08 07:29] LABS: ALT (SGPT) 28 U/L (0-35); AST (SGOT) 28 U/L (14-36); Albumin 4.3 g/dl (3.5-5.0); Alkaline Phosphatase 98 U/L (38-126); Blood Urea Nitrogen 7 mg/dl (7-17); Calcium 9.2 mg/dl (8.4-10.2); Carbon Dioxide 22 mmol/L (22-30); Chloride 108 mmol/L (98-107); Direct Bilirubin 0.1 mg/dl (0.0-0.4); Estimated Creatinine Clearance 75 ml/min; Glucose 98 mg/dl (70-99); Potassium 4.1 mmol/L (3.5-5.1); Sodium 143 mmol/L (135-145); Total Bilirubin 0.4 mg/dl (0.2-1.3); Total Protein 6.8 g/dl (6.3-8.2); eGFR > 60.00
[2024-08-08 07:48] VITALS: BP 150/89
[2024-08-08] MEDS: CIPRO 400 MG 200 IV ×2 (08:02→20:52)
[2024-08-08 08:05] LABS: Glucose - Point of Care 100 mg/dl (70-99)
[2024-08-08] MEDS: SYNTHROID 200 MCG PO (09:07)
--- NOTE | 2024-08-08 11:48 | CM ---
Off floor, will check back this afternoon.
--- NOTE | 2024-08-08 13:50 | W.PN.HOSP.TC ---
Today's Communication/Plan
-
Follow on LR diet
Follow MRE
CW ABX
Assessment / Plan
Assessment / Plan
Acute enteritis-infectious versus inflammatory.
She has ongoing abdominal pain with the decreased oral intake and loss of weight. No diarrhea.
CT of the abdomen pelvis shows-Mild bowel wall thickening, hyperenhancement, mesenteric edema, and mesenteric lymph node enlargement adjacent to several loops of small bowel within the left mid to upper abdomen, consistent with mild enteritis.
MRE abdomen pending.
CW empirical antibiotics.
CW Toradol. Patient would want to avoid narcotic pain medicines.
GI following
CRP is normal.
Further diagnostic evaluation per GI.
Pt thinks she is ready for solid diet -try LR diet
Hypertension-continue with lisinopril
Hypothyroidism-continue with Synthroid
GERD-continue PPI
Full code
Anticipated Discharge: 24 - 48 hours
Subjective/Interval History
-
Date of Service: August 08, 2024
Await MRI of the abdomen.
She is anxious but nauseous she is with empty stomach.
Fluctuating abdo pains.
No diarrhea.
No fever or chills.
Objective Data
-
Labs:
Laboratory Results
08/08/24
06:45
WBC 4.4 L
Hgb 13.6
Hct 40.5
Plt Count 236
Sodium 143
Potassium 4.1
Chloride 108 H
Carbon Dioxide 22
BUN 7
Creatinine 0.9
Glucose 98
Calcium 9.2
Total Bilirubin 0.4
AST 28
ALT 28
Alkaline Phosphatase 98
Vital Signs:
Vital Signs
Temp Pulse Resp BP Pulse Ox
98.0 F 79 16 150/89 97
08/08/24 07:48 08/08/24 07:48 08/08/24 07:48 08/08/24 07:48 08/08/24 08:30
I&O
08/07/24 08/08/24 08/09/24
06:59 06:59 06:59
Intake Total 868 / 868
Balance 868 / 868
Review of Systems
-
EENT: Denies Sore Throat
Respiratory: Denies Cough or Trouble Breathing
Cardiac: Denies Chest Pain
Neuro: Denies Dizzy
Physical Exam
-
General: Comfortable
Respiratory: Non Labored Respirations; Negative Accessory Resp Muscle Use
Cardiac: Regular Rhythm and S1/S2
GI: Soft, Nondistended, Normal Bowel Sounds and Tender (some discomfort in LUQ but no rebound or guarding)
Neuro: AO x 3
Data Reviewed
-
Labs: Labs Reviewed by me
[2024-08-08] MEDS: PROTONIX 40 MG PO (14:20)
--- NOTE | 2024-08-08 14:27 | CM ---
Patient seen bedside.
IA completed.
Patient lives with spouse and 2 children.
Multistory home with 2 steps to enter.
Independent prior to admission.
No hx VN or assistive devices.
PCP: Dr Odom
Pharmacy: [facility] [address]
Plan: home no needs anticipated.
[2024-08-08 15:14] VITALS: BP 167/92
--- NOTE | 2024-08-08 15:43 | W.PN.GI.CBS2 ---
Addendum entered and electronically signed by Julio C Wesley MD 08/08/24 18:16:
I saw and examined the patient.
The E TAILER or PA's note was reviewed and I agree with the note.
Comment: LUQ pain significantly improved. No diarrhea except after MRI.
ABD soft NTND
REC:
Cont POs
Monitor abd pain. Possible d/c tomorrow
MRE shows normal SB but borderline findings for L sided colitis.
Will plan OP colonoscopy after d/c
Addendum entered and electronically signed by CECELIA Roberts 08/08/24 17:02:
will add Bentyl PRN for pain as needed
Original Note:
Today's Communication / Plan
-
etiology of LUQ pain related to colitis, enteritis though follow up MRE stable vs other
abd pain with some improvement
MRE reviewed some mild colonic thickening
will review with Dr. Wesley for eventual OP colonoscopy last 2020 normal
will add stool studies with noted colitis and diarrhea prior to MR contrast
stool WBC neg
pt remains on Cipro and Flagyl
LFT's and lipase remain normal
recent LFT elevation-- may be fatty liver related vs other as MRI neg for fatty liver but now normalized
cont low residue diet
if continued improvement consider d/c in AM
family updated
Assessment / Plan
-
Pt is a 53yo with hx Eosinophilic esophagitis, hypothyroidism, Fabiola, GERD, HTN, IBS, prior javon with recent facial pain with ganglion injection and now noted abdominal pain.
In further review with patient symptoms started several months but worse last 2 weeks with noted US abdomen 07/26 with fatty liver, new mild splenomegaly. She also completed CT 08/03 with mild Bowel wall thickening, hyperenhancement, mesenteric
edema/lymph node enlargement c/w mild enteritis, appendicolith at base of appendix and prior javon with no duct dilation. Plan was for MRE but symptoms worsened returns to ER. She was noted in June with ALT 42(normal to 32) and lipase
89(normal to 72) other LFT's normal. Labs stable on admission with stable CBC, chemistry and LFT's. CRP 6.2.
08/08/24 MRE- Jejunal loops in the left upper quadrant appear within normal limits for MR enterography. The rest of the small bowel also appears normal. The appendix has normal caliber.As a soft finding, suggestion of mild increased enhancement of
the wall the colon with mild wall thickening, extending contiguously from the rectum through the right side of the transverse colon. There is also slight enhancement of the pericolonic fat, especially adjacent to the sigmoid colon in the left lower
quadrant adjacent to the descending colon. Please correlate with any symptoms that might suggest colitis. Status post cholecystectomy with no evidence for biliary ductal dilation.
-LUQ pain
-CT 08/03 with mild enteritis with mesenteric edema/lymph node enlargement- appears normal on MRE
-MRE with soft finding of mild increased enhancement of wall of colon with mild wall thickening Rectum to right side of transverse colon with slight enhancement pericolonic fat
-mild OP AST and lipase elevation on June
-US with fatty liver/new splenomegaly
-recent mild ALT and lipase elevation in June
-faitgue
other med problems:
-GERD
-IBS
-EOE on chronic PPI
-hypothyroidism
-Fabiola
-IBS
-prior javon
-facial pain with ganglion injection
-family hx UC - son
PLAN:
etiology of LUQ pain related to colitis, enteritis though follow up MRE stable vs other
abd pain with some improvement
MRE reviewed some mild colonic thickening will review with Dr. Wesley for eventual OP colonoscopy last 2020 normal
will add stool studies with noted colitis and diarrhea prior to MR contrast
stool WBC neg
pt remains on Cipro and Flagyl
LFT's and lipase remain normal
recent LFT elevation-- may be fatty liver related vs other as MRI neg for fatty liver
cont low residue diet
if continued improvement consider d/c in AM
family updated
Subjective
Subjective
Date of Service: August 08, 2024
08/08 brown stool,-- reports diarrhea prior to admission and last PM prior to contrast, on low residue diet-- c/o weakness
Objective
Data Reviewed
Laboratory Data:
Laboratory Results
08/08/24 06:45
08/08/24 06:45
Laboratory Results
Total Bilirubin 0.4 mg/dl (0.2-1.3) 08/08/24 06:45
AST 28 U/L (14-36) 08/08/24 06:45
ALT 28 U/L (0-35) 08/08/24 06:45
Alkaline Phosphatase 98 U/L (38-126) 08/08/24 06:45
Lipase 223 U/L (23-300) 08/07/24 06:16
Vital Signs and I&O:
Vital Signs
Temp Pulse Resp BP Pulse Ox
98.7 F 82 17 167/92 97
08/08/24 15:14 08/08/24 15:14 08/08/24 15:14 08/08/24 15:14 08/08/24 15:14
I&O
08/07/24 08/08/24 08/09/24
06:59 06:59 06:59
Intake Total 868 / 868
Balance 868 / 868
Physical Exam
Physical Exam
HEENT: Anicteric and Moist mucous membranes
Cardiology: Normal Sinus Rhythm
Pulmonary: Clear
GI: Soft, Non Distended and Tender (mild left sided pain)
Extremities: No Edema
Neuro: Non Focal and Other
[2024-08-08] MEDS: VISBIOME 1 CAP PO (17:14)
[2024-08-08] MEDS: BENTYL 10 MG PO (17:40)
[2024-08-08] MEDS: ZESTRIL 5 MG PO (20:55)
[2024-08-08 23:26] VITALS: BP 152/83
--- NOTE | 2024-08-09 04:11 | DOWNTIME ---
There was a [employer] Client Camera Control Operator Downtime on 08/09/2024 from 0100 to 08/09/2024 at 0350. Downtime documentation of patient's care, including medication administrations, has been reconciled in the electronic record per guidelines. Refer to the
patient's paper chart under the miscellaneous tab to see printed paper medication records and downtime forms.
[2024-08-09 07:30] VITALS: BP 144/83
[2024-08-09] MEDS: FLAGYL 500 MG 100 IV (08:12)
[2024-08-09] MEDS: BENTYL 10 MG PO (08:13)
[2024-08-09] MEDS: SYNTHROID 200 MCG PO (08:13)
[2024-08-09] MEDS: CIPRO 400 MG 200 IV (09:59)
[2024-08-09] MEDS: PROTONIX 40 MG PO (12:13)
--- NOTE | 2024-08-09 12:40 | W.PN.HOSP.TC ---
Today's Communication/Plan
-
DC
Assessment / Plan
Assessment / Plan
Acute colitis-infectious versus inflammatory.
She has ongoing abdominal pain with the decreased oral intake and loss of weight. No diarrhea.
CT of the abdomen pelvis shows-Mild bowel wall thickening, hyperenhancement, mesenteric edema, and mesenteric lymph node enlargement adjacent to several loops of small bowel within the left mid to upper abdomen, consistent with mild enteritis.
MRE abdomen shows no small bowel changes but does show left-sided colitis concern.
CRP is normal.
Stool cultures including C. difficile, WBC, Cryptosporidium. Negative. Rest of the stool cultures are pending. Clinically not sounding like infection. No evidence of the diarrhea. Afebrile. No leukocytosis. Hold further abx.
Tolerating diet.
GI recs out patient colonoscopy.
Hypertension-continue with lisinopril
Hypothyroidism-continue with Synthroid
GERD-continue PPI
Full code
Anticipated Discharge: Today
Subjective/Interval History
-
Date of Service: August 09, 2024
Feeling improved and tolerating low residue diet.
No nausea vomiting today.
Keen to go home.
No fever or chills.
Objective Data
-
Vital Signs:
Vital Signs
Temp Pulse Resp BP Pulse Ox
97.2 F 72 16 144/83 99
08/09/24 07:30 08/09/24 07:30 08/09/24 07:30 08/09/24 07:30 08/09/24 07:30
I&O
08/08/24 08/09/24 08/10/24
06:59 06:59 06:59
Intake Total 868 / 868 1260 / 1260
Balance 868 / 868 1260 / 1260
Review of Systems
-
Constitutional: Denies Fever
EENT: Denies Sore Throat
Respiratory: Denies Trouble Breathing
Cardiac: Denies Chest Pain
Abdomen/GI: Denies Diarrhea
Neuro: Denies Dizzy
Physical Exam
-
General: No Apparent Distress
HEENT: Moist Mucous Membranes
Respiratory: Clear to Auscultation
Cardiac: Regular Rhythm and S1/S2
GI: Soft, Nontender, Nondistended and Normal Bowel Sounds
Neuro: AO x 3
Psych: Calm
Data Reviewed
-
Labs: Labs Reviewed by me
[2024-08-09 13:00] VITALS: BP 150/90
--- NOTE | 2024-08-09 13:24 | W.PN.GI.CBS2 ---
Today's Communication / Plan
-
F/U with me in the office next week to set up colonoscopy
OK for d/c
Assessment / Plan
-
Pt is a 53yo with hx Eosinophilic esophagitis, hypothyroidism, Fabiola, GERD, HTN, IBS, prior javon with recent facial pain with ganglion injection and now noted abdominal pain.
In further review with patient symptoms started several months but worse last 2 weeks with noted US abdomen 07/26 with fatty liver, new mild splenomegaly. She also completed CT 08/03 with mild Bowel wall thickening, hyperenhancement, mesenteric
edema/lymph node enlargement c/w mild enteritis, appendicolith at base of appendix and prior javon with no duct dilation. Plan was for MRE but symptoms worsened returns to ER. She was noted in June with ALT 42(normal to 32) and lipase
89(normal to 72) other LFT's normal. Labs stable on admission with stable CBC, chemistry and LFT's. CRP 6.2.
08/08/24 MRE- Jejunal loops in the left upper quadrant appear within normal limits for MR enterography. The rest of the small bowel also appears normal. The appendix has normal caliber.As a soft finding, suggestion of mild increased enhancement of
the wall the colon with mild wall thickening, extending contiguously from the rectum through the right side of the transverse colon. There is also slight enhancement of the pericolonic fat, especially adjacent to the sigmoid colon in the left lower
quadrant adjacent to the descending colon. Please correlate with any symptoms that might suggest colitis. Status post cholecystectomy with no evidence for biliary ductal dilation.
-LUQ pain
-CT 08/03 with mild enteritis with mesenteric edema/lymph node enlargement- appears normal on MRE
-MRE with soft finding of mild increased enhancement of wall of colon with mild wall thickening Rectum to right side of transverse colon with slight enhancement pericolonic fat
-mild OP AST and lipase elevation on June
-US with fatty liver/new splenomegaly
-recent mild ALT and lipase elevation in June
-faitgue
other med problems:
-GERD
-IBS
-EOE on chronic PPI
-hypothyroidism
-Fabiola
-IBS
-prior javon
-facial pain with ganglion injection
-family hx UC - son
Subjective
Subjective
Date of Service: August 09, 2024
Abd pain improved. Tolerating POs
Objective
Data Reviewed
Laboratory Data:
Laboratory Results
08/08/24 06:45
08/08/24 06:45
Laboratory Results
Total Bilirubin 0.4 mg/dl (0.2-1.3) 08/08/24 06:45
AST 28 U/L (14-36) 08/08/24 06:45
ALT 28 U/L (0-35) 08/08/24 06:45
Alkaline Phosphatase 98 U/L (38-126) 08/08/24 06:45
Lipase 223 U/L (23-300) 08/07/24 06:16
Vital Signs and I&O:
Vital Signs
Temp Pulse Resp BP Pulse Ox
97.2 F 72 16 144/83 99
08/09/24 07:30 08/09/24 07:30 08/09/24 07:30 08/09/24 07:30 08/09/24 07:30
I&O
08/08/24 08/09/24 08/10/24
06:59 06:59 06:59
Intake Total 868 / 868 1260 / 1260
Balance 868 / 868 1260 / 1260
Physical Exam
Physical Exam
GI: Soft, Non Distended and Non Tender
--- NOTE | 2024-08-09 15:46 | W.DCSUMMARY ---
Discharge Summary
Discharge Data
Date of Admission: 08/07/24
Date of Discharge: 08/09/24
-
Pending Results: No
Hospital Course
Primary diagnosis:
Acute colitis
Secondary diagnosis:
Hypertension
Hypothyroidism
Gastroesophageal reflux disease
Hospital course:
53 with esophageal esophagitis history, Fabiola's, hypothyroidism, irritable bowel syndrome and GERD presented with several months of abdominal discomfort but got worse 2 weeks before presentation. No significant diarrhea. She had some nausea
and poor oral intake. She had a CT of the abdomen pelvis which showed mild bowel wall thickening, hyperenhancement, mesenteric edema/lymph node enlargement w consistent with mild enteritis.
In view of poor oral intake and ongoing GI symptoms she was admitted to hospital was seen by GI and had an MRE which showed no issues with the small intestine but there was a slight enhancement of the wall of the colon with mild wall thickening,
extending continuously from the rectum through the right side of the transverse colon. There was also slight enhancement of the pericolonic fat especially adjacent to the sigmoid colon the left lower quadrant adjacent to the descending colon.
Radiologically raises concern for colitis and clinically also colitis. CRP was okay.
Was not acting like infectious colitis. No diarrhea was present. Antibiotics were discontinued after initial empirical start.
GI plans to schedule an outpatient colonoscopy for further evaluation.
She was feeling improved and was able to tolerate solid diet before discharge.
Consultants on board:
GI-Julio C Connolly
Discharge Plan
-
Patient Disposition: Home (Routine Discharge)
Discharge Diagnosis/Procedures: Colitis
Diet: Low Residue
Additional Diets: for a week
Activity: As tolerated
Driving Restrictions: As prior to admission
Referrals:
Paula Odom CRNP [Family Provider] - in less than 1 week
Julio C Wesley MD [Active] -
Prescriptions:
New
acetaminophen 325 mg Tablet
650 mg PO Q4HPRN PRN (Reason: mild pain /fever >100.4) Qty: 1 0RF
dicyclomine 10 mg Capsule
10 mg PO Q8HPRN PRN (Reason: crampy abdominal pain) Qty: 20 0RF
Continued
therapeutic multivitamin Tablet
1 tab PO DAILY
pantoprazole 40 mg Tablet,Delayed Release (Dr/Ec)
40 mg PO NOON
levothyroxine [Synthroid] 200 mcg Tablet
200 mcg PO MOTUWETHFRSA
Visbiome 112.5 billion cell Capsule
1 cap PO QPM
levothyroxine [Synthroid] 200 mcg tablet
100 mcg PO MORALEZ
lisinopril 5 mg tablet
5 mg PO HS
cranberry extract [Ellura] 200 mg Capsule
200 mg PO DAILY
Discharge Orders:
Discharge Patient (As Directed); Ordered 08/09/24
Ordered By: Scott Em
Discharge Date and Time
Discharge Date/Time: 08/09/24 14:10
Print Language: MALIAN
== END 2024-08-09 14:10 | disposition home or self-care (01) | DRG 392 ==
LOC: 3 WEST ACU 10:21
PROVIDERS: ADMITTING PHYSICIAN Internal Medicine; CONSULT PHYSICIAN Internal Medicine Gastroenterology; EMERGENCY PHYSICIAN Emergency Medicine; FAMILY PHYSICIAN Nurse Practitioner Family
DX: K52.9 Noninfective gastroenteritis and colitis, unspecified (principal); I10 Essential (primary) hypertension; E06.3 Autoimmune thyroiditis; K21.9 Gastro-esophageal reflux disease without esophagitis; E66.9 Obesity, unspecified; Z68.29 Body mass index [BMI] 29.0-29.9, adult; Z90.49 Acquired absence of other specified parts of digestive tract; Z88.2 Allergy status to sulfonamides; Z88.1 Allergy status to other antibiotic agents; Z88.0 Allergy status to penicillin; Z79.890 Hormone replacement therapy
CPT/HCPCS: 72197; 74183; 80053; 81003; 81015; 82248; 82962; 83690; 85025; 85027; 86140; 87045; 87046; 87086; 87324; 87328; 87329; 87427; 87449; 89055; 96361; 96365; 96375; 99285; A9585

== ENCOUNTER → 2024-08-22 06:17 | Day surgery (SDC) | payer OTHER, SELFPAY | LOC: GI 06:17 | PROVIDERS: ATTENDING PHYSICIAN Specialist | DX: K20.90 Esophagitis, unspecified without bleeding (principal); K31.7 Polyp of stomach and duodenum; R10.12 Left upper quadrant pain; R93.3 Abnormal findings on diagnostic imaging of other parts of digestive tract; Z87.19 Personal history of other diseases of the digestive system | CPT/HCPCS: 45380; 43239; 88305; 88342 ==

== ENCOUNTER → 2024-09-21 07:44 | Outpatient (REF) | payer OTHER, SELFPAY | LOC: MRI 07:44 | PROVIDERS: ATTENDING PHYSICIAN Physical Medicine & Rehabilitation; FAMILY PHYSICIAN Nurse Practitioner Family | DX: M54.14 Radiculopathy, thoracic region (principal) | CPT/HCPCS: 72146 ==

== ENCOUNTER → 2024-10-03 08:39 | Outpatient (REF) | payer OTHER, SELFPAY | LOC: WDC 08:39 | PROVIDERS: ATTENDING PHYSICIAN Obstetrics & Gynecology Gynecology; FAMILY PHYSICIAN Nurse Practitioner Family | DX: N63.20 Unspecified lump in the left breast, unspecified quadrant (principal); N63.14 Unspecified lump in the right breast, lower inner quadrant | CPT/HCPCS: 76642; 77062; 77066 ==

== ENCOUNTER → 2024-10-05 08:08 | Outpatient (REF) | payer OTHER, SELFPAY | LOC: HWRCS 08:08 | PROVIDERS: ATTENDING PHYSICIAN Nurse Practitioner; FAMILY PHYSICIAN Nurse Practitioner Family | DX: R07.89 Other chest pain (principal) | CPT/HCPCS: 93306 ==

== ENCOUNTER → 2024-11-17 15:25 | Outpatient (REF) | payer OTHER, SELFPAY | LOC: RAD 15:25 | PROVIDERS: ATTENDING PHYSICIAN Nurse Practitioner Family | DX: R10.12 Left upper quadrant pain (principal) | CPT/HCPCS: 74177; Q9967 ==

== ENCOUNTER 2024-12-04 16:45 | Outpatient (RCR) | payer OTHER, SELFPAY | END 2024-12-04 23:59 | disposition home or self-care (01) | LOC: RPT 16:45 | PROVIDERS: ATTENDING PHYSICIAN Physical Medicine & Rehabilitation; FAMILY PHYSICIAN Nurse Practitioner Family | DX: M54.12 Radiculopathy, cervical region (principal); M54.14 Radiculopathy, thoracic region; Z73.6 Limitation of activities due to disability | CPT/HCPCS: 97010; 97110; 97140; 97162 ==

== ENCOUNTER 2025-01-10 17:05 | Outpatient (RCR) | payer OTHER, SELFPAY | END 2025-01-10 23:59 | disposition home or self-care (01) | LOC: RPT 17:05 | PROVIDERS: ATTENDING PHYSICIAN Physical Medicine & Rehabilitation; FAMILY PHYSICIAN Nurse Practitioner Family | DX: M54.12 Radiculopathy, cervical region (principal); M54.14 Radiculopathy, thoracic region; Z73.6 Limitation of activities due to disability | CPT/HCPCS: 97010; 97110; 97140 ==

== ENCOUNTER 2025-01-17 18:07 | Outpatient (RCR) | payer OTHER, SELFPAY | END 2025-01-17 23:59 | disposition home or self-care (01) | LOC: RPT 18:07 | PROVIDERS: ATTENDING PHYSICIAN Physical Medicine & Rehabilitation; FAMILY PHYSICIAN Nurse Practitioner Family | DX: M54.12 Radiculopathy, cervical region (principal); M54.14 Radiculopathy, thoracic region; Z73.6 Limitation of activities due to disability | CPT/HCPCS: 97110; 97140 ==

== ENCOUNTER 2025-03-07 16:57 | Outpatient (RCR) | payer OTHER, SELFPAY | END 2025-03-07 23:59 | disposition home or self-care (01) | LOC: RPT 16:57 | PROVIDERS: ATTENDING PHYSICIAN Physical Medicine & Rehabilitation; FAMILY PHYSICIAN Nurse Practitioner Family | DX: M54.12 Radiculopathy, cervical region (principal); M54.14 Radiculopathy, thoracic region; Z73.6 Limitation of activities due to disability | CPT/HCPCS: 97110 ==

== ENCOUNTER 2025-04-12 06:49 | Outpatient (RCR) | payer OTHER, SELFPAY | END 2025-04-12 23:59 | disposition home or self-care (01) | LOC: RPT 06:49 | PROVIDERS: ATTENDING PHYSICIAN Physical Medicine & Rehabilitation; FAMILY PHYSICIAN Nurse Practitioner Family | DX: M54.12 Radiculopathy, cervical region (principal); M54.14 Radiculopathy, thoracic region; Z73.6 Limitation of activities due to disability | CPT/HCPCS: 97010; 97110; 97140 ==

== ENCOUNTER → 2025-05-01 14:56 | Outpatient (REF) | payer OTHER, SELFPAY | LOC: HWRAD 14:56 | PROVIDERS: ATTENDING PHYSICIAN Nurse Practitioner Adult Health | DX: K42.9 Umbilical hernia without obstruction or gangrene (principal); R10.33 Periumbilical pain | CPT/HCPCS: 76705 ==

== ENCOUNTER 2025-05-02 17:07 | Outpatient (RCR) | payer OTHER, SELFPAY | END 2025-05-02 23:59 | disposition home or self-care (01) | LOC: RPT 17:07 | PROVIDERS: ATTENDING PHYSICIAN Physical Medicine & Rehabilitation; FAMILY PHYSICIAN Nurse Practitioner Family | DX: M54.12 Radiculopathy, cervical region (principal); M54.14 Radiculopathy, thoracic region; Z73.6 Limitation of activities due to disability | CPT/HCPCS: 97010; 97110; 97140 ==

== ENCOUNTER 2025-05-08 08:18 | Emergency (ER) | payer OTHER, SELFPAY ==
[2025-05-08] VITALS (7 sets, daily range): BP systolic 139–168; BP diastolic 78–95; BMI 30.4
[2025-05-08 08:45] LABS: Hematocrit 47.4 % (37.0-47.0); Hemoglobin 16.2 g/dL (12.0-16.0); Mean Corp Hgb Conc. 34.2 g/dL (33.0-37.0); Mean Corpuscular Volume 85.3 fL (81.0-99.0); Nucleated Red Blood Cells % 0 %; Platelet Count 194 10^3/uL (130-400); Red Cell Dist. Width 13.7 % (11.5-14.5)
[2025-05-08] MEDS: TORADOL 30 MG IV (09:02)
[2025-05-08] MEDS: NSS 1000 IV (09:02)
[2025-05-08 09:07] LABS: ALT (SGPT) 41 U/L (0-35); AST (SGOT) 36 U/L (14-36); Albumin 5.1 g/dl (3.5-5.0); Alkaline Phosphatase 90 U/L (38-126); Blood Urea Nitrogen 15 mg/dl (7-17); Calcium 9.7 mg/dl (8.4-10.2); Carbon Dioxide 26 mmol/L (22-30); Chloride 107 mmol/L (98-107); Estimated Creatinine Clearance 75 ml/min; Glucose 129 mg/dl (70-99); Potassium 4.5 mmol/L (3.5-5.1); Sodium 140 mmol/L (135-145); Total Protein 7.9 g/dl (6.3-8.2); eGFR > 60.00
[2025-05-08 09:23] LABS: Urine Character Clear (Clear)
--- NOTE | 2025-05-08 09:23 | ED.GENMED ---
History of Present Illness
General
Chief Complaint: Abdominal Pain
Source: patient
Exam Limitations: none
Time Seen by Provider: 05/08/25 08:23
Nursing documentation reviewed up to this point in time: agreed with
History of Present Illness
History of Present Illness:
see MDM
Past History
Past History
ED Past Medical History: GERD, Hypothyroidism and Other (palpitations. Lyme disease,)
ED Past Surgical History: Cholecystectomy
Social History
Tobacco: Non-smoker
Alcohol: Occasional
Drug: None
Personal:
Living: with family
Employment: Employed
Family History
Family History: Negative Diabetes, Hypertension or CAD
Phy Exam
Physical Exam
Physical Exam:
GENERAL: Alert , in no apparent distress
EYE: pupils equal and reactive
NECK: Supple
ENT: o/p clr, mmm.
CARDIAC: Regular rate and rhythm .
LUNGS: Clear breath sounds bilaterally, no acute respiratory distress, no wheezes/rales/rhonchi
ABDOMEN: Soft, moderate lower abdominal tenderness especially right lower quadrant, no r/g, no cvat, normal bowel sounds
NEUROLOGICAL: Alert and oriented, no focal neuro deficits
SKIN: Warm and dry, skin intact.
MUSCULOSKELETAL: No edema, well perfused. neg paul's sign
PSYCH: Normal and appropriate interaction.
Course
Orders/Labs/Results
Orders:
Orders
05/08/25 08:35
CMP [Comprehensive Metabolic Panel] Urgent
Complete Blood Count/With Diff Urgent
05/08/25 08:43
Urinalysis Reflex To Culture Urgent
Date Specimen was Collected: 05/08/25
Time Specimen was Collected: 08:42
05/08/25 08:56
CT Abd/Pel (IV only)-DH only Urgent
Comment:
Reason For Exam: lower abd pain, nausea, h/o UTI
0.9% Sodium Chloride 1000 ml [Nss] 1,000 ml IV BOLUS
Ketorolac [Toradol] 30 mg IV NOW STA
Abnormal Lab Results
05/08/25
08:35
WBC 4.7 L 10^3/uL
(4.8-10.8)
RBC 5.56 H 10^6/uL
(4.20-5.40)
Hgb 16.2 H g/dL
(12.0-16.0)
Hct 47.4 H %
(37.0-47.0)
MPV 11.1 H fL
(7.4-10.4)
Glucose 129 H mg/dl
(70-99)
ALT 41 H U/L
(0-35)
Albumin 5.1 H g/dl
(3.5-5.0)
05/08/25 08:35
05/08/25 08:35
Vital Signs
Initial and Last Documented VS:
Initial Vital Signs
Temp Pulse Resp BP Pulse Ox
36.6 C 102 18 168/94 99
05/08/25 08:19 05/08/25 08:19 05/08/25 08:19 05/08/25 08:19 05/08/25 08:19
Last Documented Vital Signs
Temp Pulse Resp BP Pulse Ox
36.6 C 102 18 168/94 99
05/08/25 08:19 05/08/25 08:19 05/08/25 08:19 05/08/25 08:19 05/08/25 08:19
MDM/Problems Addressed
Differential Diagnosis Includes:
see MDM
MDM/Problems Addressed:
Note:
CHIEF COMPLAINT(S)
Abdominal pain.
HISTORY OF PRESENT ILLNESS
The patient is a 54-year-old female presenting with diffuse abdominal pain that began about 3 weeks ago. She initially saw her primary care physician, who recommended urine testing. Before leaving for vacation, the patient submitted a urine sample
and received phone call that she had e coli. by the time she was notified, pt had gone to and they confirmed UTI. macrobid bid x 5 days which she completed 1 week ago. she continues to have the pain that is mostly lower now, and localizing to
the R side, occasionally feels it on the left side, with nausea, lack of appetite and mild diarrhea.
she denies fever, dysuria, frequency, hematuria, vomiting
The pain appears constant and does not worsen with movement, sitting, or eating. The patient rates her current pain level at a 4 out of 10. She denies any past history of diverticulitis or kidney stones but has undergone past ovarian procedures.
ADDITIONAL HISTORY OBTAINED FROM SOURCES OTHER THAN THE PATIENT
There was no additional history obtained from other sources.
CHRONIC MEDICAL CONDITIONS SIGNIFICANTLY AFFECTING CARE
- Hypertension.
- Cervical spondylosis, undergoing therapy for it.
PHYSICAL EXAM
Nursing notes reviewed and vital signs reviewed.
- Abdominal: Tenderness noted in the right lower quadrant and central abdominal region upon palpation.
PROBLEM LIST
Acute:
- Abdominal pain of unclear etiology.
Chronic:
- Hypertension.
- Cervical spondylosis.
PLAN
- Confirm resolution of urinary tract infection via another urine sample.
- Conduct blood tests and review results.
- Perform a computed tomography (CT) scan to evaluate abdominal pain further.
- Administer intravenous Toradol for pain management.
- Provide intravenous fluids.
- Advise the patient to stay nil per os (NPO) until further diagnostic clarity is achieved.
DIFFERENTIAL DIAGNOSIS
The Differential Diagnosis includes, in no particular order and is not limited to:
1. Urinary Tract Infection Persistency/Reoccurrence.
2. Appendicitis.
3. Ovarian Cyst/Torsion.
4. Diverticulitis.
5. Gastroenteritis.
6. Colitis.
7. Gallbladder Disease.
8. Renal Colic.
9. Peptic Ulcer Disease.
10. Pancreatitis.
*Pulse Oximetry
SaO2: 99
Oxygen Mode of Delivery: Room air
ED Attending Note
-
Portions of this chart may have been created with voice recognition software.� Occasional wrong word or��sound alike� substitutions may have occurred due to the inherent limitations of voice recognition software.
Discharge Plan
Departure
Prescriptions:
No Action
therapeutic multivitamin Tablet
1 tab PO DAILY
pantoprazole 40 mg Tablet,Delayed Release (Dr/Ec)
40 mg PO NOON
levothyroxine [Synthroid] 200 mcg Tablet
200 mcg PO MOTUWETHFRSA
Visbiome 112.5 billion cell Capsule
1 cap PO QPM
levothyroxine [Synthroid] 200 mcg tablet
100 mcg PO MORALEZ
lisinopril 5 mg tablet
5 mg PO HS
cranberry extract [Ellura] 200 mg Capsule
200 mg PO DAILY
acetaminophen 325 mg Tablet
650 mg PO Q4HPRN PRN (Reason: mild pain /fever >100.4) Qty: 1 0RF
dicyclomine 10 mg Capsule
10 mg PO Q8HPRN PRN (Reason: crampy abdominal pain) Qty: 20 0RF
Referrals:
Cheryl Cardoso CRNP [Family Provider, Internal Medicine]
Interventions
Interventions:
*Risk Screen - Suicide Last Done: 05/08/25 08:19
*General Assessment Last Done: 05/08/25 08:19
*Neglect/Abuse Screening Last Done: 05/08/25 08:19
*ED- Fall Risk Assessment Last Done: 05/08/25 08:27
*ED COVID-19 Vaccine History Last Done: 05/08/25 08:27
GT-[id number]-[id number] Assessment Last Done: 05/08/25 08:27
Discharge Date and Time
Print Language: TUNISIAN
[2025-05-08 10:28] LABS: Urine Squamous Cell 26-30 /LPF (Few)
[2025-05-08 12:26] LABS: Urine Character Clear (Clear)
--- NOTE | 2025-05-08 17:22 | CON.GS ---
Addendum entered and electronically signed by Kvng Orozco MD 05/09/25 07:23:
Patient seen and examined.
Patient is a 54 yo F with a PMH of obesity, GERD, HTN, hypothyroidism, cervical neck disease, and s/p laparoscopic cholecystectomy who presents with approximately 2 weeks of intermittent RLQ abdominal discomfort. Pain described as dull and achy.
No significant exacerbating or relieving factors. Not worse with activity such as walking. No radiation of discomfort. She does have some umbilical discomfort as well but this appears to be separate from her RLQ abdominal pain. She was recently
evaluated at a urgent care and diagnosed with a UTI. She was treated with a 5-day course of Macrobid. She does note some looser stools, but nonbloody. She had a recent colonoscopy approximately 8 to 9 months, due to an MRI which demonstrated mild
wall thickening of the colon from the rectum to transverse area. Polyps were removed, random biopsies were obtained - no significant colitis was found. No fevers or chills. No nausea or vomiting. She does report some increased frequency of
urination but denies any dysuria. She denies any spotting or vaginal bleeding though she describes her pain as similar to prior ovarian cysts. No notable family history.
Abdominal CT scan was obtained which demonstrated a normal-appearing appendix with a small appendicolith at the base without any other significant findings of bowel wall thickening or obstruction. General surgery was consulted due to the presence
of the appendicolith.
Gen: NAD
Abd: soft, mild tenderness in RLQ, ND, non-peritoneal, prior incisions well healed, mild periumbilical pain, palpable 1 cm umbilical hernia, soft, reducible, no skin changes
Labs and CT scan were reviewed
Patient is a 54 yo F p/w persistent RLQ abdominal pain over the past 2 weeks
Uncertain what to exactly make of her abdominal discomfort. Differential remains broad and includes MSK, [employer] pathology such as an ovarian cyst, or GI related such as a gastroenteritis or IBS given her prior history. Less likely to be appendicitis
given the duration and presentation of her symptoms with fluctuating levels of pain, as well as a CT scan which demonstrates no evidence of appendiceal inflammation or dilation. Unlikely to be related to her umbilical hernia given the distinct
location. No plans for indication for General Surgery intervention such as a laparoscopic appendectomy or umbilical hernia repair at this time. Further workup and management by the ED, PCP, or GI service.
-- No plans for surgical intervention
-- Consider repeat course of abx for UTI and GI coverage
-- Outpatient f/u with PCP and [employer] and/or GI
-- Previously schedule for Gen Surg follow-up related to her umbilical hernia
Original Note:
Consultation
-
Date/Time Consultation Performed: 05/08/25 1700
Performing Provider: Shad Mondragon MD
Reason for Consultation: Abdominal pain
Medical History
-
Chief Complaint: Abdominal pain
History of Present Illness:
Patient with history of enteritis (last July) and cholecystectomy (1999) began having intermittent lower abdominal pain approximately 2 weeks ago. The pain has become more pronounced over the last 2 weeks, with the severity of pain now
fluctuating between 1-2/10 and 5-6/10. Patient characterizes the pain as dull and gnawing. There are no particular alleviating or aggravating factors, including movement or eating. The pain does not radiate anywhere outside of her lower abdomen
and periumbilical area. Patient tried Tylenol and tramadol for the pain, but neither has helped. Patient has had intermittent nausea and occasional diarrhea over the past 2 weeks. Patient had a recent UTI within the last 2 weeks, which was
treated with a 5-day course of Macrobid. Patient states she has had UTIs in the past, and this does not feel the same as those episodes. Patient states this pain feels similar to when she has had ovarian cysts in the past. Patient states she has
had concern for an umbilical hernia in the past, and she actually scheduled for an outpatient surgical evaluation in the coming weeks. Patient states she had a colonoscopy 8-9 months ago, which was unremarkable.
Past Medical History
Past Medical History: GERD, HTN, Hypothyroidism and Other (Enteritis; disc herniation)
Past Surgical History: Cholecystectomy
Social History
Tobacco: Non-Smoker
Alcohol: Occasional
Family History
Family History: Reviewed & Noncontributory
Allergies / Home Medications
Allergy/AdvReac Type Severity Reaction Status Date / Time
amoxicillin (Amoxicillin) Allergy Rash Verified 05/08/25 08:21
cefaclor (From Ceclor) Allergy Rash Verified 05/08/25 08:21
erythromycin base Allergy Rash Verified 05/08/25 08:21
(Erythromycin Base)
sulfamethoxazole (From Allergy Rash Verified 05/08/25 08:21
Bactrim)
trimethoprim (From Bactrim) Allergy Rash Verified 05/08/25 08:21
�Medication �Instructions �Recorded �Confirmed �Type
Lactobac no.2-Bifidobac no.1-S. 1 cap PO QPM probiotic 07/06/23 08/07/24 History
thermo 112.5 billion cell capsule
(Visbiome)
levothyroxine 200 mcg tablet 200 mcg PO MOTUWETHFRSA Thyroid 07/06/23 08/07/24 History
(Synthroid)
pantoprazole 40 mg tablet,delayed 40 mg PO NOON Gastrointestinal 07/06/23 08/07/24 History
release Issue
therapeutic multivitamin 1 tab PO DAILY Supplement 07/06/23 08/07/24 History
cranberry extract 200 mg capsule 200 mg PO DAILY UTI prophylaxis 08/03/24 08/07/24 History
(Ellura)
levothyroxine 200 mcg tablet 100 mcg PO MORALEZ Thyroid 08/03/24 08/07/24 History
(Synthroid)
lisinopril 5 mg tablet 5 mg PO HS Blood Pressure 08/03/24 08/07/24 History
acetaminophen 325 mg tablet 650 mg (2 x 325 mg) PO Q4HPRN PRN 08/09/24 Rx
mild pain /fever >100.4 #1 tab
dicyclomine 10 mg capsule 10 mg PO Q8HPRN PRN crampy 08/09/24 Rx
abdominal pain #20 caps
amoxicillin 875 mg-potassium 1 tab PO BID #14 tabs 05/08/25 Rx
clavulanate 125 mg tablet
dicyclomine 20 mg tablet 20 mg PO TID PRN abdominal pain 05/08/25 Rx
#12 tabs
Review of Systems
-
A 10 point review of systems was completed, and was negative except as per HPI.
Physical Exam
Vital Signs
Temp Pulse Resp BP Pulse Ox
97.8 F 102 18 147/95 99
05/08/25 08:19 05/08/25 08:19 05/08/25 08:19 05/08/25 17:00 05/08/25 16:56
05/07/25 05/08/25 05/09/25
06:59 06:59 06:59
Actual Weight 83 kg
Body Mass Index (BMI) 30.4
Lab Results
05/08/25 08:35
05/08/25 08:35
WBC 4.7 10^3/uL (4.8-10.8) L 05/08/25 08:35
Hgb 16.2 g/dL (12.0-16.0) H 05/08/25 08:35
Hct 47.4 % (37.0-47.0) H 05/08/25 08:35
Plt Count 194 10^3/uL (130-400) 05/08/25 08:35
Abs Immat Gran (auto) 0.0 10^3/uL (0-0.05) 05/08/25 08:35
Neutrophils % 61.2 % (42.2-75.2) 05/08/25 08:35
Physical Exam
General: No Apparent Distress
HEENT: Negative Anicteric
GI: Soft, Tender (TTP RLQ and periumbilical) and Other (No ecchymoses, swelling, or fluctuance); Negative Non Distended
Skin: Warm and Dry
Neuro: Awake and AO x 3
Psych: Calm
Assessment / Plan
-
Assessment: Patient is a 54F w/ PMH of enteritis and PSH of cholecystectomy who presents with complaint of lower abdominal pain for two weeks. The pain ranges in severity from 1-6/10, does not radiate, and is most pronounced in the RLQ and
periumbilical area. It is associated with intermittent nausea and occasional diarrhea. Patient is afebrile with no leukocytosis (WBC 4.7). CT scan showed an appendicolith at the base of the appendix with no additional findings (edema, enlargement,
thickened wall) to suggest acute appendicitis. Based on the complete clinical picture, including the symptom duration of two weeks, normal appendix on CT (other than appendicolith), lack of fever/chills/fatigue/sweats, and WBC of 4.7, suspicion for
acute appendicitis is low.
Plan:
No surgical intervention recommended at this time, as low suspicion for acute appendicitis, as detailed above
Follow-up recommended with pre-existing appointment with surgical team for evaluation of possible umbilical hernia
Consider antibiotics in the setting of persistent abdominal pain and recent UTI
Consider gynecology consult if symptoms persist, given that this episode feels similar to prior ovarian cysts, per patient
Consider follow-up imaging if symptoms persist or worsen
== END 2025-05-08 17:16 | disposition home or self-care (01) ==
LOC: EMR 08:18
PROVIDERS: Physician Assistant; CONSULT PHYSICIAN Surgery; EMERGENCY PHYSICIAN Emergency Medicine; FAMILY PHYSICIAN Nurse Practitioner Adult Health
DX: K59.00 Constipation, unspecified (principal); I10 Essential (primary) hypertension; E03.9 Hypothyroidism, unspecified; K21.9 Gastro-esophageal reflux disease without esophagitis; M47.812 Spondylosis without myelopathy or radiculopathy, cervical region
CPT/HCPCS: 99284; 96374; 96361; 74177; 80053; 81003; 81015; 85025; 87086; Q9967

== ENCOUNTER → 2025-05-30 19:19 | Outpatient (REF) | payer OTHER, SELFPAY | LOC: MRI 19:19 | PROVIDERS: ATTENDING PHYSICIAN Surgery; FAMILY PHYSICIAN Family Medicine | DX: R10.31 Right lower quadrant pain (principal) | CPT/HCPCS: 72197; A9575 ==

== ENCOUNTER 2025-06-13 13:22 | Emergency (ER) | payer OTHER, SELFPAY ==
[2025-06-13 13:25] VITALS: BP 153/99
[2025-06-13 13:59] VITALS: BMI 30.1
--- NOTE | 2025-06-13 14:07 | ED.GENMED ---
History of Present Illness
General
Chief Complaint: Abdominal Pain
Source: patient
Exam Limitations: none
Time Seen by Provider: 06/13/25 14:06
Nursing documentation reviewed up to this point in time: agreed with
History of Present Illness
History of Present Illness:
Patient is a 54-year-old female with past medical history of cholecystectomy GERD hypertension hypothyroidism obesity presents to the ER with right lower quadrant pain. This has been ongoing since April. Patient was seen here in the ER May 08
and did have a surgical evaluation for this pain. In addition she has recently had a pelvis MRI which was negative for any bony abnormality /finding of the pelvis. In addition the abdominal pelvic structures including the kidneys uterus and
bladder and bowel are grossly unremarkable with a normal appendix and no hernias identified.
Patient reports prior to symptoms starting in April she was fine. Pain is mostly constant but comes in waves and worsens in intensity. She was at work today and had to come to the ER because of worsening pain. She does have Bentyl at home which
seems to help a little. She reports the other day she had a little discomfort with urination and has been having increasing frequency. She denies any back pain fever chills nausea vomiting.
Past History
Past History
ED Past Medical History: GERD, Hypothyroidism and Other (palpitations. Lyme disease,)
ED Past Surgical History: Cholecystectomy
Social History
Tobacco: Non-smoker
Alcohol: Occasional
Drug: None
Personal:
Living: with family
Employment: Employed
Family History
Family History: Negative Diabetes, Hypertension or CAD
Phy Exam
General Physical Exam
General Presentation: no apparent distress
General age: appears stated age
General Skin: warm and dry
General Habitus: normal
General Mental: alert
General Hydration: appears well hydrated
Gastrointestinal Exam
Gastrointestinal Exam: soft and other (non specific tenderness throughout abdomen )
Neurological Exam
Neurological Exam: alert and oriented x3
Musculoskeletal Exam
Musculoskeletal Exam: full ROM
Course
Orders/Labs/Results
Orders:
Orders
06/13/25 14:14
Basic Metabolic Panel Urgent
Complete Blood Count/With Diff Urgent
Urinalysis Urgent
Date Specimen was Collected: 06/13/25
Time Specimen was Collected: 14:13
Urine Microscopic Urgent
Date Specimen was Collected: 06/13/25
Time Specimen was Collected: 14:13
06/13/25 14:18
Dicyclomine HCl [Bentyl] 20 mg IM NOW STA
06/13/25 14:23
CT Abd/pel W Iv And Oral Contr Urgent
Comment:
Reason For Exam: constant abd pain varies in intensity
Iohexol [Omnipaque] See Protocol PO NOW STA
06/13/25 14:25
0.9% Sodium Chloride 1000 ml [Nss] 1,000 ml IV BOLUS
06/13/25 15:03
Lactic Acid Urgent
Potassium Urgent
06/13/25 18:42
Nitrofurantoin Monohydrate [Macrobid] 100 mg PO NOW STA
Abnormal Lab Results
06/13/25 06/13/25
14:14 15:03
MPV 10.7 H fL
(7.4-10.4)
Lactic Acid 0.6 L mmol/L
(0.7-2.0)
Calcium 10.5 H mg/dl
(8.4-10.2)
Urine Occult Blood 1+ A
(Negative)
Urine Nitrite Positive A
(Negative)
Ur Leukocyte Esterase 2+ A
(Negative)
Urine WBC 30-40 A /HPF
(0-5)
Urine Bacteria Moderate A
(Negative)
Urine Albumin 1+ A
(Neg - Trace)
06/13/25 14:14
06/13/25 15:03
Vital Signs
Initial and Last Documented VS:
Initial Vital Signs
Temp Pulse Resp BP Pulse Ox
98.1 F 76 18 153/99 100
06/13/25 13:25 06/13/25 13:25 06/13/25 13:25 06/13/25 13:25 06/13/25 13:25
Last Documented Vital Signs
Temp Pulse Resp BP Pulse Ox
98.1 F 79 23 141/87 98
06/13/25 13:25 06/13/25 18:25 06/13/25 18:22 06/13/25 18:22 06/13/25 15:30
Alpaca Farmer consulted with Physician
Alpaca Farmer consulted with physician?: Yes
Name of Physician Consulted: naa
MDM/Problems Addressed
Differential Diagnosis Includes:
Not limited constipation colitis appendicitis, UTI
MDM/Problems Addressed:
As documented patient has had intermittent abdominal pain since April without a diagnosis. She was evaluated by surgery during previous ER visit and had an outpatient MRI which I reviewed. Patient presents no acute distress she has had some
intermittent UTI symptoms. Labs unremarkable. CAT scan shows a normal appendix and stable mild mesenteric panniculitis with small lymph nodes this may possibly be the cause of patient's symptoms. She has an appointment with GI tomorrow I did
review this with patient and instructed patient to speak with her GI specialist about this. In addition she does have a UTI we will treat with Macrobid. Discussed close outpatient follow-up and to return if any worsening of symptoms. She is
well-appearing nontoxic stable for DC home
*Radiology
Radiology exam reviewed: radiology read reviewed
*Pulse Oximetry
SaO2: 100
Oxygen Mode of Delivery: Room air
Patient hypoxic: no
*Critical Care Note
Total Time (30-74mins, 75-104mins- exclusive of procedures): Not Applicable
ED Attending Note
-
Portions of this chart may have been created with voice recognition software.� Occasional wrong word or��sound alike� substitutions may have occurred due to the inherent limitations of voice recognition software.
Discharge Plan
Departure
Patient Disposition: Home (Routine Discharge)
Date of Disposition: 06/13/25
Time of Disposition: 18:45
Patient with high blood pressure during this ER visit?: Yes
Condition: Fair
Covid-19: Not Applicable
Discharge Problem:
Abdominal pain, UTI (urinary tract infection)
Instructions: Urinary tract infection in adults - ED (DC), BLOOD PRESSURE
Prescriptions:
New
nitrofurantoin monohyd/m-cryst [Macrobid] 100 mg capsule
100 mg PO BID Qty: 14 0RF
No Action
therapeutic multivitamin Tablet
1 tab PO DAILY
pantoprazole 40 mg Tablet,Delayed Release (Dr/Ec)
40 mg PO NOON
levothyroxine [Synthroid] 200 mcg Tablet
200 mcg PO MOTUWETHFRSA
Visbiome 112.5 billion cell Capsule
1 cap PO QPM
levothyroxine [Synthroid] 200 mcg tablet
100 mcg PO MORALEZ
lisinopril 5 mg tablet
5 mg PO HS
cranberry extract [Ellura] 200 mg Capsule
200 mg PO DAILY
acetaminophen 325 mg Tablet
650 mg PO Q4HPRN PRN (Reason: mild pain /fever >100.4) Qty: 1 0RF
dicyclomine 10 mg Capsule
10 mg PO Q8HPRN PRN (Reason: crampy abdominal pain) Qty: 20 0RF
dicyclomine 20 mg tablet
20 mg PO TID PRN (Reason: abdominal pain) Qty: 12 0RF
amoxicillin-pot clavulanate 875-125 mg tablet
1 tab PO BID Qty: 14 0RF
Referrals:
Shobha Foster MD [Family Provider, Family Practice]
Activity Restrictions/Additional Instructions:
As discussed you do have a urinary tract infection and you are given the first dose of Macrobid here in the ER antibiotic was sent to pharmacy take as directed. In addition your CAT scan does show findings consistent mesenteric panniculitis.
Please follow-up for this finding and for your continued abdominal pain with GI as scheduled tomorrow. Return if any worsening of symptoms
Interventions
Interventions:
*Risk Screen - Suicide Last Done: 06/13/25 13:25
*General Assessment Last Done: 06/13/25 13:25
*ED- Fall Risk Assessment Last Done: 06/13/25 14:17
*ED COVID-19 Vaccine History Last Done: 06/13/25 14:17
*ED Influenza Vaccine History Last Done: 06/13/25 14:17
WR-Miwpnz-Niyvojrrtv Assessment Last Done: 06/13/25 14:19
Discharge Date and Time
Print Language: KHMER
[2025-06-13 14:24] LABS: Urine Character Slightly Cloudy (Clear)
[2025-06-13 14:27] LABS: Hematocrit 45.3 % (37.0-47.0); Hemoglobin 15.8 g/dL (12.0-16.0); Mean Corp Hgb Conc. 34.9 g/dL (33.0-37.0); Mean Corpuscular Volume 85.0 fL (81.0-99.0); Nucleated Red Blood Cells % 0 %; Platelet Count 189 10^3/uL (130-400); Red Cell Dist. Width 12.8 % (11.5-14.5)
[2025-06-13] MEDS: BENTYL 20 MG IM (14:27)
[2025-06-13 14:44] LABS: Blood Urea Nitrogen 16 mg/dl (7-17); Calcium 10.5 mg/dl (8.4-10.2); Carbon Dioxide 26 mmol/L (22-30); Chloride 105 mmol/L (98-107); Estimated Creatinine Clearance 75 ml/min; Glucose 95 mg/dl (70-99); Sodium 139 mmol/L (135-145); eGFR > 60.00
[2025-06-13 15:00] VITALS: BP 146/81
[2025-06-13] MEDS: NSS 1000 IV (15:00)
[2025-06-13] MEDS: OMNIPAQUE 50 ML PO (15:06)
[2025-06-13 15:16] LABS: Urine Squamous Cell >30 /LPF (Few); Urine White Cell 30-40 /HPF (0-5)
[2025-06-13 15:17] LABS: Urine Red Blood Cell 0-2 /HPF (0-2)
[2025-06-13 15:39] LABS: Potassium 4.3 mmol/L (3.5-5.1)
[2025-06-13 18:22] VITALS: BP 141/87
[2025-06-13] MEDS: MACROBID 100 MG PO (18:48)
== END 2025-06-13 18:58 | disposition home or self-care (01) ==
LOC: EMR 13:22
PROVIDERS: Nurse Practitioner; EMERGENCY PHYSICIAN Emergency Medicine; FAMILY PHYSICIAN Family Medicine
DX: R10.31 Right lower quadrant pain (principal); N39.0 Urinary tract infection, site not specified; K65.4 Sclerosing mesenteritis; I10 Essential (primary) hypertension; E03.9 Hypothyroidism, unspecified; E66.9 Obesity, unspecified; Z68.30 Body mass index [BMI] 30.0-30.9, adult; K21.9 Gastro-esophageal reflux disease without esophagitis
CPT/HCPCS: 99284; 96372; 74177; 80048; 81003; 81015; 83605; 84132; 85025; Q9967

== ENCOUNTER → 2025-06-22 09:25 | Outpatient (REF) | payer OTHER, SELFPAY | LOC: MRI 09:25 | PROVIDERS: ATTENDING PHYSICIAN Specialist; FAMILY PHYSICIAN Family Medicine | DX: R10.31 Right lower quadrant pain (principal) | CPT/HCPCS: 72197; 74183; A9585 ==